=== PATIENT | male | born 1990 | race Caucasian/White ===

== ENCOUNTER 2019-12-21 22:45 | Emergency (ER) | payer SELFPAY ==
[~2019-12-21] VITALS: Ht 175.3 cm; Wt 112.5 kg
[2019-12-21] MEDS ORDERED: SODIUM CHLORIDE 0.9% 1000ML 1,000 ML IV STA (22:47)
[2019-12-21] MEDS ORDERED: ASPIRIN 81 MG CHEW TAB PO ONE (23:00)
[2019-12-21 23:44] LABS: BASOPHILS # (AUTO) 0.1 (0.0-0.1); BASOPHILS % 0.8 % (0.0-1.0); EOSINOPHILS # (AUTO) 0.2 (0.0-0.4); EOSINOPHILS % 2.4 % (0.0-6.0); HEMATOCRIT 45.5 % (38.2-49.6); HEMOGLOBIN 14.9 g/dL (14.0-18.0); LYMPHOCYTES # (AUTO) 1.7 (1.0-3.2); LYMPHOCYTES % 18.8 % (18.0-39.1); MEAN CORPUSCULAR HEMOGLOBIN 27.6 pg (28-32); MEAN CORPUSCULAR HGB CONC 32.7 g/dL (31-35); MEAN CORPUSCULAR VOLUME 84.3 fL (81-99); MONOCYTES # (AUTO) 0.7 (0.2-0.8); MONOCYTES % 8.3 % (4.4-11.3); NEUTROPHILS # (AUTO) 6.1 (2.1-6.9); NEUTROPHILS % 69.5 % (38.7-80.0); PLATELET COUNT 268 x10e3/uL (140-360); RED CELL DISTRIBUTION WIDTH 13.5 % (11.7-14.4)
[2019-12-22 00:02] LABS: ALANINE AMINOTRANSFERASE 17 IU/L (0-55); ALBUMIN/GLOBULIN RATIO 1.3 (0.8-2.0); ALKALINE PHOSPHATASE 103 IU/L (40-150); ANION GAP 12.9 mmol/L (8-16); BLOOD UREA NITROGEN 13 mg/dL (7-26); BUN/CREATININE RATIO 16 (6-25); CALCIUM 9.4 mg/dL (8.4-10.2); CARBON DIOXIDE 24 mmol/L (22-29); CHLORIDE 107 mmol/L (98-107); CREATINE KINASE 60 IU/L (30-200); CREATININE, SERUM 0.82 mg/dL (0.72-1.25); EST GLOMERULAR FILTRATION RATE > 60 ML/MIN (60-); GLUCOSE 94 mg/dL (74-118); POTASSIUM 3.9 mmol/L (3.5-5.1); SODIUM 140 mmol/L (136-145)
[2019-12-22 00:25] LABS: AMPHETAMINES SCREEN,URINE NEGATIVE (NEGATIVE); BENZODIAZEPINES SCREEN,URINE NEGATIVE (NEGATIVE); PHENCYCLIDINE SCREEN,URINE NEGATIVE (NEGATIVE)
--- NOTE | 2019-12-22 01:45 | Diagnostic Imaging Report ---
EXAMINATION: CHEST 2 VIEWS INDICATION: Chest pain, short of breath, anxiety, dizziness COMPARISON: None FINDINGS: TUBES and LINES: None. LUNGS: Normal lung volumes. Lungs are clear. No consolidations. PLEURA: No pleural effusion or pneumothorax. HEART AND MEDIASTINUM: The cardiomediastinal silhouette is unremarkable. BONES AND SOFT TISSUES: Degenerative changes in the spine. No acute osseous lesion. Soft tissues are unremarkable. UPPER ABDOMEN: No free air under the diaphragm. IMPRESSION: No acute thoracic radiographic abnormality. Signed by: William Vasquez DO on 12/22/2019 1:42 AM
== END 2019-12-22 01:11 | disposition home or self-care (01) ==
LOC: ER 22:45
DX: R07.89 Other chest pain (principal); F41.9 Anxiety disorder, unspecified; M54.9 Dorsalgia, unspecified; G89.29 Other chronic pain
CPT/HCPCS: 36415; 71046; 80053; 80307; 82550; 82553; 83880; 84484; 85025; 85379; 93005; 99284; J7030

== ENCOUNTER 2020-01-02 22:27 | Emergency (ER) | payer SELFPAY ==
[~2020-01-02] VITALS: Ht 175.3 cm; Wt 112.5 kg
--- OUTSIDE RECORDS SUMMARY | 2020-01-02 22:30 | XMS REPORT | Clinical Summary ---
Author Author [facility] Address Unknown Phone Unavailable Care Team Providers Care Vacuum Worker Name Role Phone Colt Marin MD PCP Allergies No Known Allergies Medications End Date Status Medication Sig Dispensed Refills Start Date 01/16/2020 Active meloxicam (Mobic) 15 mg Take 1 tablet 20 tablet 0 tablet (15 mg total) 0 by mouth daily as needed for mild pain or moderate pain for up to 30 days. 01/21/2019 Discontinued (Reorder) enalapril (VASOTEC) 10 MG Take 10 mg by 0 tablet mouth 2 (two) times a day. 11/20/2019 Discontinued (Therapy comple derrek) HYDROcodone-acetaminophen Take 1 tablet 0 (NORCO) 10-325 mg per by mouth tablet every 6 (six) hours as needed for moderate pain. 09/23/2019 Discontinued (Reorder) tiZANidine (ZANAFLEX) 4 Take 4 mg by 0 MG tablet mouth every 8 (eight) hours as needed for muscle spasms. 01/26/2019 butalbital-acetaminophen- Take 1 tablet 15 tablet 0 caff (ESGIC) 50-325-40 mg by mouth 9 per tablet every 6 (six) hours as needed for headaches or migraine for up to 5 days. 02/20/2019 enalapril (VASOTEC) 10 MG Take 1 tablet 60 tablet 1 tablet (10 mg total) 9 by mouth 2 (two) times a day for 30 days. 09/30/2019 methocarbamol (ROBAXIN) Take 1 tablet 21 tablet 0 750 MG tablet (750 mg 0 total) by mouth 3 (three) times a day for 7 days. 10/23/2019 pantoprazole (PROTONIX) Take 1 tablet 30 tablet 0 40 MG EC tablet (40 mg total) 0 by mouth daily for 30 days. 09/30/2019 tiZANidine (ZANAFLEX) 4 Take 1 tablet 21 tablet 0 MG tablet (4 mg total) 0 by mouth every 8 (eight) hours as needed for muscle spasms for up to 7 days. 09/28/2019 amoxicillin-pot Take 1 tablet 10 tablet 0 09/23/19 2 clavulanate (AUGMENTIN) by mouth 2 0 875-125 mg per tablet (two) times a day for 5 days. 12/16/2019 naproxen (NAPROSYN) 500 Take 1 tablet 20 tablet 0 MG tablet (500 mg 0 total) by mouth 2 (two) times a day as needed (pain) for up to 10 days. 12/09/2019 butalbital-acetaminophen- Take 1 tablet 12 tablet 0 caff (Esgic) 50-325-40 mg by mouth 0 per tablet every 6 (six) hours as needed for headaches for up to 3 days. 12/27/2019 amoxicillin-pot Take 1 tablet 20 tablet 0 12/17/19 2 clavulanate (AUGMENTIN) by mouth 0 875-125 mg per tablet every 12 (twelve) hours for 10 days. Active Problems Problem Noted Date Chronic intractable headache 09/23/2019 Migraine 01/21/2019 Status migrainosus 01/20/2019 Encounters Care Team Description Date Type Specialty Tevin Madrid MD Nonintractable episodic headache, unspec ified headache type (Primary Dx); Dehydration; Pharyngitis, unspecified etiology 12/17/2019 Emergency Emergency Medicine 12/17/2019 Travel Kenny Pandey MD Chronic nonintractable headache, unspeci fied headache type (Primary Dx) 12/06/2019 Emergency Emergency Medicine 12/06/2019 Travel Sylvain Turner MD Chest pain, unspecified type (Primary Dx ) 12/01/2019 Emergency Emergency Medicine 12/01/2019 Travel Anshul Skelton NP-C Wingkun, Neil-Jeremy Go, MD Umbilical hernia without obstruction and without gangrene (Primary Dx); Hydronephrosis, unspecified hydronephrosis type 11/20/2019 Emergency Emergency Medicine 11/20/2019 Travel Anshul Skelton NP-C Tha Gimenez MD de Ochoa, Christopher Jon, MD Chronic intractable headache, unspecifie d headache type (Primary Dx) 09/22/2019 Emergency Emergency Medicine - 09/23/2019 Darien Cortes DO T[place], Remy, Alvarez Phillip MD Status migrainosus (Primary Dx); Migraine without status migrainosus, not intractable, unspecified migraine type 01/19/2019 [facility] General Surgery - Encounter 01/21/2019 after 01/01/2019 Social History Date Tobacco Use Types Packs/Day Years Used Former Smoker Smokeless Tobacco: Never Used Drinks/Week oz/Week Comments Alcohol Use occasionally Yes Sex Assigned at Date Recorded Not on file Industry Job Start Date Occupation Not on file Not on file Not on file Travel End Travel History Travel Start No recent travel history available. Date Recorded COVID-19 Exposure Response 12/17/2019 4:43 PM CDT In the last month, have you been in contact with No / Unsure someone who was confirmed or suspected to have Coronavirus / COVID-19? Last Filed Vital Signs Reading Time Taken Comments Vital Sign 143/84 12/17/2019 7:57 PM CDT Blood Pressure 82 12/17/2019 7:57 PM CDT Pulse 36.6 C (97.8 F) 12/17/2019 3:00 PM CDT Temperature 16 12/17/2019 7:57 PM CDT Respiratory Rate 100% 12/17/2019 7:57 PM CDT Oxygen Saturation - - Inhaled Oxygen Concentration 114 kg (252 lb) 12/17/2019 3:00 PM CDT Weight 175.3 cm (5' 9") 12/17/2019 3:00 PM CDT Height 37.21 12/17/2019 3:00 PM CDT Body Mass Index Plan of Treatment Health Maintenance Due Date Last Done Comments DIABETIC RETINAL EYE EXAM 1992 DIABETIC FOOT EXAM 02/21/2002 URINE MICROALBUMIN 02/21/2002 INFLUENZA VACCINE 03/13/2020 Procedures Comments Procedure Name Priority Date/Time Associated Diag nosis CT SOFT TISSUE NECK W STAT 12/17/2019 CONTRAST 6:56 PM CDT URINALYSIS SCREEN AND Routine 12/17/2019 MICROSCOPY, WITH REFLEX 6:30 PM CDT TO CULTURE URINE CULTURE Routine 12/17/2019 6:30 PM CDT MAGNESIUM LEVEL STAT 12/17/2019 3:33 PM CDT PHOSPHORUS LEVEL STAT 12/17/2019 3:33 PM CDT ESTIMATED GFR STAT 12/17/2019 3:33 PM CDT CREATINE KINASE, TOTAL STAT 12/17/2019 (CPK) 3:33 PM CDT COMPREHENSIVE METABOLIC STAT 12/17/2019 PANEL 3:33 PM CDT T4, FREE STAT 12/17/2019 3:33 PM CDT THYROID STIMULATING STAT 12/17/2019 HORMONE 3:33 PM CDT B NATRIURETIC PEPTIDE STAT 12/17/2019 3:33 PM CDT TROPONIN STAT 12/17/2019 3:33 PM CDT LACTIC ACID LEVEL, SEPSIS STAT 12/17/2019 - NOW AND REPEAT 2X EVERY 3:33 PM CDT 3 HOURS PARTIAL THROMBOPLASTIN STAT 12/17/2019 TIME (PTT) 3:33 PM CDT PROTHROMBIN TIME WITH INR STAT 12/17/2019 3:33 PM CDT HC COMPLETE BLD COUNT STAT 12/17/2019 W/AUTO DIFF 3:33 PM CDT XR CHEST 1 VW PORTABLE STAT 12/17/2019 3:26 PM CDT ECG ED PRELIMINARY Routine 12/17/2019 INTERPRETATION 3:13 PM CDT ECG 12-LEAD STAT 12/17/2019 2:[address] ANGIOGRAM HEAD W WO STAT 12/06/2019 CONTRAST 7:25 AM CDT CARBOXYHEMOGLOBIN STAT 12/06/2019 7:15 AM CDT ECG ED PRELIMINARY Routine 12/06/2019 INTERPRETATION 6:44 AM CDT ECG 12-LEAD STAT 12/06/2019 6:27 AM CDT ESTIMATED GFR STAT 12/06/2019 6:24 AM CDT HC COMPLETE BLD COUNT STAT 12/06/2019 W/AUTO DIFF 6:24 AM CDT COMPREHENSIVE METABOLIC STAT 12/06/2019 PANEL 6:24 AM CDT LIPASE LEVEL STAT 12/01/2019 8:30 PM CDT ESTIMATED GFR STAT 12/01/2019 8:30 PM CDT B NATRIURETIC PEPTIDE STAT 12/01/2019 8:30 PM CDT TROPONIN STAT 12/01/2019 8:30 PM CDT COMPREHENSIVE METABOLIC STAT 12/01/2019 PANEL 8:30 PM CDT HC COMPLETE BLD COUNT STAT 12/01/2019 W/AUTO DIFF 8:30 PM CDT XR CHEST 2 VW STAT 12/01/2019 8:26 PM CDT ECG ED PRELIMINARY Routine 12/01/2019 INTERPRETATION 8:09 PM CDT ECG 12-LEAD STAT 12/01/2019 8:06 PM CDT ECG 12-LEAD Routine 11/20/2019 9:42 PM CDT ECG 12-LEAD STAT 11/20/2019 9:26 PM CDT TROPONIN Routine 11/20/2019 9:[address] ABDOMEN PELVIS W STAT 11/20/2019 CONTRAST 8:36 PM CDT TROPONIN Timed 11/20/2019 7:27 PM CDT ESTIMATED GFR STAT 11/20/2019 7:27 PM CDT HEPATIC FUNCTION PANEL STAT 11/20/2019 7:27 PM CDT LIPASE LEVEL STAT 11/20/2019 7:27 PM CDT BASIC METABOLIC PANEL STAT 11/20/2019 7:27 PM CDT HC COMPLETE BLD COUNT STAT 11/20/2019 W/AUTO DIFF 7:27 PM CDT URINALYSIS SCREEN AND STAT 11/20/2019 MICROSCOPY, WITH REFLEX 7:24 PM CDT TO CULTURE URINE CULTURE STAT 11/20/2019 7:24 PM CDT ECG ED PRELIMINARY Routine 11/20/2019 INTERPRETATION 7:13 PM CDT ECG ED PRELIMINARY Routine 11/20/2019 INTERPRETATION 7:13 PM CDT ESTIMATED GFR Routine 09/23/2019 3:59 AM CHILD CARE ATTENDANT COMPREHENSIVE METABOLIC Routine 09/23/2019 PANEL 3:59 AM CHILD CARE ATTENDANT HC COMPLETE BLD COUNT Routine 09/23/2019 W/AUTO DIFF 3:59 AM CHILD CARE ATTENDANT URINALYSIS SCREEN AND STAT 09/23/2019 MICROSCOPY, WITH REFLEX 1:45 AM CHILD CARE ATTENDANT TO CULTURE URINE CULTURE STAT 09/23/2019 1:45 AM CHILD CARE ATTENDANT ESTIMATED GFR STAT 09/23/2019 12:48 AM CHILD CARE ATTENDANT CREATINE KINASE, TOTAL STAT 09/23/2019 (CPK) 12:48 AM CHILD CARE ATTENDANT COMPREHENSIVE METABOLIC STAT 09/23/2019 PANEL 12:48 AM CHILD CARE ATTENDANT HC COMPLETE BLD COUNT STAT 09/23/2019 W/AUTO DIFF 12:48 AM [address] CARE [address] CT HEAD WO CONTRAST STAT 09/23/2019 12:26 AM CHILD CARE ATTENDANT THYROID STIMULATING Routine 01/21/2019 HORMONE 5:02 AM CDT POC GLUCOSE Routine 01/21/2019 1:27 AM CDT MRI BRAIN WO CONTRAST Routine 01/20/2019 10:21 PM CDT POC GLUCOSE Routine 01/19/2019 11:26 PM CDT ESTIMATED GFR STAT 01/19/2019 10:55 PM CDT CREATINE KINASE, TOTAL STAT 01/19/2019 (CPK) 10:55 PM CDT BASIC METABOLIC PANEL STAT 01/19/2019 10:55 PM CDT HC COMPLETE BLD COUNT STAT 01/19/2019 W/AUTO DIFF 10:[address] HEAD WO CONTRAST STAT 01/19/2019 10:31 PM CDT ECG ED PRELIMINARY Routine 01/19/2019 INTERPRETATION 10:09 PM CDT ECG 12-LEAD STAT 01/19/2019 10:05 PM CDT after 01/01/2019 Results * CT Soft Tissue Neck W Contrast (12/17/2019 6:56 PM CDT) Specimen Narrative Performed At EXAMINATION: CT SOFT TISSUE NECK W CONTRAST [facility] CLINICAL HISTORY: oral swelling COMPARISON: None. TECHNIQUE: Axial helical CT images throughout the neck soft tissues were performed with IV contrast. Sagittal and coronal reformat derrek images were generated. All CT images were acquired using low-d ose technique with automated exposure control. FINDINGS: There is no neck mass, fluid collection , or lymphadenopathy. Pharynx and larynx are unremarkable. Parotid and submandib ular glands are normal in appearance. The thyroid gland is unremarkable. No significant cervical spondylosis is appreciated. There is a anterior bridging osteophytes at C5-C6 and C6-C7 levels. Visualized lungs and mediastinum are un remarkable. IMPRESSION: Unremarkable neck [facility]. [id number] Procedure Note Interface, Radiology Results Incoming - 12/17/2019 7:06 PM CDT EXAMINATION: CT SOFT TISSUE NECK W CONTRAST CLINICAL HISTORY: oral swelling COMPARISON: None. TECHNIQUE: Axial helical CT images throughout the neck soft tissues were performed with IV contrast. Sagittal and coronal reformatted images were generated. All CT images were acquired using low-dose technique with automated exposure control. FINDINGS: There is no neck mass, fluid collection, or lymphadenopathy. Pharynx and larynx are unremarkable. Parotid and submandibular glands are normal in appearance. The thyroid gland is unremarkable. No significant cervical spondylosis is appreciated. There is a anterior bridging osteophytes at C5-C6 and C6-C7 levels. Visualized lungs and mediastinum are unremarkable. IMPRESSION: Unremarkable neck [facility]. [facility]-[id number] Performing Organization Address [facility] one Number [facility] [address] [place] [address] * Urinalysis screen and microscopy, with reflex to culture (12/17/2019 6:30 PM CDT) Only the most recent of 3 results within the time period is included. Specimen site Clean catch [facility] Color, UA Straw [facility] Appearance, UA Clear [facility] Specific 1.006 1.001 - 1.035 [place] gravity, [facility] pH, UA 6.0 5.0 - 8.5 [facility] Protein, UA Negative Negative [facility] Glucose, UA Negative Negative [facility] Ketones, UA Negative Negative [facility] Bilirubin, UA Negative Negative [facility] Blood, UA Negative Negative [facility] Nitrite, UA Negative Negative [facility] Urobilinogen, Negative <2.[address] [facility] Leukocyte Negative Negative [place] esterase, UA [facility] Epithelial None seen Few /HPF [place] cells, UA [facility] WBC, UA None seen 0 - 1 /HPF [facility] RBC, UA 0-5 0 - 5 /HPF [facility] Bacteria, UA None seen None seen [facility] Yeast, UA None seen [facility] Yeast with None seen [place] pseudohyphae, [facility] Specimen Urine Performing Organization Address City/[facility] one Number [facility] [place] [place] [address] [address] [place], [place] [address] PATHOLOGY AND GENOMIC MEDICINE [facility] [place] [address] [address] Se[address] * Urine culture (12/17/2019 6:30 PM CDT) Only the most recent of 3 results within the time period is included. Urine culture SEE COMMENTComment: [place] Bacteriuria screen negative. [facility] Specimen Urine Performing Organization Address [facility] one Number [facility] [place] [place] [address] [address] [place] [address] 58 PATHOLOGY AND GENOMIC MEDICINE [place] [address] [address] Faisal Sexton [address] * Estimated GFR (12/17/2019 3:33 PM CDT) Only the most recent of 7 results within the time period is included. Pathologist [facility] Estimated GFR >=90 mL/min/1.73 m2 [place] Comment: [facility] Interpretation G1 >=90 Normal or high G2 60-89 Mildly decreased G3a 45-59 Mildly to moderately decreased G3b 30-44 Moderately to severely decreased G4 15-29 Severely decreased G5 <15 Kidney failure The eGFR was calculated using the Chronic Kidney Disease Epidemiology Collaboration (CKD-EPI) equation. Interpretation is based on recommendations of the National Kidney Foundation-Kidney Disease Outcomes Quality Initiative (NKF-KDOQI) published in 2014. Specimen Performing Organization Address [facility] one Number [facility] DEPARTMENT OF [facility] [address] [place] [address] PATHOLOGY AND GENOMIC MEDICINE [facility] * Lactic acid level, SEPSIS - Now and repeat 2x every 3 hours (12/17/2019 3:33 PM CDT) Lactic acid 0.9 0.5 - 2.2 mmol/L [facility] Specimen Blood Performing Organization Address City/[facility] one Number [facility] [place] [address] [address] [address] PATHOLOGY AND GENOMIC MEDICINE [facility] [address] * Troponin (12/17/2019 3:33 PM CDT) Only the most recent of 4 results within the time period is included. Pathologist [facility] Troponin <0.006 0.000 - 0.040 ng/mL [place] Comment: BERT KELLEY In patients suspected of [facility] having a myocardial infarction, along with all other appropriate clinical measures and actions including ECG and other diagnostics as appropriate, measure Ultra TnI at 0 hrs and at 3 hrs. Myocardial infarction VERY LIKELY The 0 hr TnI level is > 0.10 ng/mL Myocardial infarction LIKELY The 0 hr TnI level is > 0.04 ng/mL and 3 hr level is increased or decreased by at least 0.020 ng/mL Myocardial infarction VERY UNLIKELY Both the 0 hr and 3 hr TnI levels <= 0.04 ng/mL(within normal limits) OR 0 hr is > 0.04 ng/mL and 3 hr is increased OR decreased by less than 0.020 ng/mL Specimen Blood Performing Organization Address [facility] Ph one Number [facility] [place]PARTMENT [place] [id number] [place] [address] [place], [place] [address] PATHOLOGY AND GENOMIC MEDICINE [place] BERT KELLEY [id number] [place] [address] [place] [address] [facility] * Partial thromboplastin time, activated (12/17/2019 3:33 PM CDT) Pathologist [facility] PTT 27.1 23.0 - 36.0 sec [place] Comment: BERT KELLEY PTT therapeutic range for [facility] unfractionated heparin is 61.0-112.0 seconds which corresponds to Anti-Xa 0.3-0.7 U/ml. Specimen Blood Performing Organization Address [facility] Ph one Number [facility] [place] [id number] [place] [address] [place] [address] PATHOLOGY AND GENOMIC MEDICINE [facility] [address] * Prothrombin time with INR (12/17/2019 3:33 PM CDT) [facility] Prothrombin 14.6 (H) 11.5 - 14.5 sec [facility] INR 1.1 [place] Comment: [facility] Normalized [facility] Ratio (INR) is a therapeutic monitoring tool for patients who are stable on oral anticoagulant therapy. An INR of 2.0-3.0 is suggested for deep vein thrombosis/pulmonary embolism. Specimen Blood Performing Organization Address City/State/[facility] Ph one Number [facility] [place] [address] [place] [phone] PATHOLOGY AND GENOMIC MEDICINE [facility] [address] [address] Fais[address] Sexton [address] * CBC with platelet and differential (12/17/2019 3:33 PM CDT) Only the most recent of 7 results within the time period is included. [facility] WBC 8.93 4.50 - 11.00 k/uL [facility] RBC 5.23 4.40 - 6.00 m/uL [facility] HGB 14.7 14.0 - 18.0 g/dL [facility] HCT 45.6 41.0 - 51.0 % [facility] MCV 87.2 82.0 - 100.0 fL [facility] MCH 28.1 27.0 - 34.0 pg [facility] MCHC 32.2 31.0 - 37.0 g/dL [facility] RDW - SD 43.1 37.0 - 55.0 fL [facility] MPV 11.7 8.8 - 13.2 fL [facility] Platelet count 254 150 - 400 k/uL [facility] Nucleated RBC 0.00 /100 WBC [facility] Neutrophils 55.3 39.0 - 69.0 % [facility] Lymphocytes 32.0 25.0 - 45.0 % [facility] Monocytes 8.5 0.0 - 10.0 % [facility] Eosinophils 3.0 0.0 - 5.0 % [facility] Basophils 1.0 0.0 - 1.0 % [facility] Specimen Blood Performing Organization Address City/[facility] Ph one Number [facility] [place] [address] [address] [place] [address] PATHOLOGY AND GENOMIC MEDICINE [facility] [address] [address]aisal Sexton [address] * Thyroid stimulating hormone (12/17/2019 3:33 PM CDT) Only the most recent of 2 results within the time period is included. TSH 1.06 0.27 - 4.20 uIU/mL [facility] Specimen Blood Performing Organization Address City/[facility] Ph one Number [facility] [place] [address] [address] [place] [address] PATHOLOGY AND GENOMIC MEDICINE [place] [address] [address]al Sexton [address] * T4, free (12/17/2019 3:33 PM CDT) T4, free 1.52 0.90 - 1.70 ng/dL [facility] Specimen Blood Performing Organization Address City/[facility] Ph one Number [facility] [place] [place] [address] [address] Faisal Sexton [place] [address] PATHOLOGY AND GENOMIC MEDICINE [place] [address] [address] Faisal Sexton [address] * Phosphorus level (12/17/2019 3:33 PM CDT) Phosphorus 4.0 2.4 - 4.5 mg/dL [facility] Specimen Performing Organization Address City/[facility] Ph one Number [facility] [place] [address] [address] [place] [address] 58 PATHOLOGY AND GENOMIC MEDICINE [place] [address] [address] Faisal Sexton [address] * B natriuretic peptide (12/17/2019 3:33 PM CDT) Only the most recent of 2 results within the time period is included. BNP 6 0 - 100 pg/mL [facility] Specimen Blood Performing Organization Address City/[facility] Ph one Number [facility] [place] [address] [address] [place], [place] [address] PATHOLOGY AND GENOMIC MEDICINE [address] Faisal Sexton [address] * Magnesium level (12/17/2019 3:33 PM CDT) Magnesium 2.0 1.6 - 2.6 mg/dL [facility] Specimen Performing Organization Address [facility] one Number [facility] DEPARTMENT [address] [place], [place] [address] PATHOLOGY AND GENOMIC MEDICINE [address] * Creatine kinase, total (CPK) (12/17/2019 3:33 PM CDT) Only the most recent of 3 results within the time period is included. Creatine kinase 74 39 - 308 U/L [facility] Specimen Performing Organization Address [facility] Ph one Number [facility] DEPARTMENT [address] Faisal Sexton [place], [place] [address] PATHOLOGY AND GENOMIC MEDICINE [address] * Comprehensive metabolic panel (12/17/2019 3:33 PM CDT) Only the most recent of 5 results within the time period is included. Sodium 141 135 - 148 mEq/L [facility] Potassium 3.7 3.5 - 5.0 mEq/L [facility] Chloride 102 98 - 112 mEq/L [facility] CO2 27 24 - 31 mEq/L [facility] Anion gap 12@ANIO 7 - 15 mEq/L [facility] BUN 12 6 - 20 mg/dL [facility] Creatinine 1.10 0.70 - 1.20 mg/dL [facility] Glucose 110 (H) 65 - 99 mg/dL [facility] Calcium 9.3 8.3 - 10.2 mg/dL [facility] Protein 7.3 6.3 - 8.3 g/dL [place] Comment: [facility] 4.6-7.0 g/dL 1 week 4.4-7.6 g/dL 7 months-1year 5.1-7.3 g/dL 1-2 years 5.6-7.5 g/dL >3 years 6.0-8.0 g/dL 18-150 6.3-8.3 g/dL Albumin 4.5 3.5 - 5.0 g/dL [facility] A/G ratio 1.6 0.7 - 3.8 [facility] Alkaline 110 40 - 129 U/L [place] phosphatase [facility] AST 15 10 - 50 U/L [facility] ALT 21 5 - 50 U/L [facility] Total bilirubin 0.6 0.0 - 1.2 mg/dL [facility] Specimen Performing Organization Address [facility] Ph [place] [address] [address] [place] [address] PATHOLOGY AND GENOMIC MEDICINE [facility] [address] [place] [address] [facility] * XR Chest 1 Vw Portable (12/17/2019 3:26 PM CDT) Specimen Narrative Performed At EXAMINATION: XR CHEST 1 VW PORTABLE [facility] CLINICAL HISTORY: chest pain COMPARISON: December 01, 2019 chest IMPRESSION: Unremarkable single view chest The lungs are clear. The heart is not enlarged. The bony structures are within normal l imits. [id number] Procedure Note Hm Interface, Radiology Results Incoming - 12/17/2019 3:32 PM CDT EXAMINATION: XR CHEST 1 VW PORTABLE CLINICAL HISTORY: chest pain COMPARISON: December 01, 2019 chest IMPRESSION: Unremarkable single view chest The lungs are clear. The heart is not enlarged. The bony structures are within normal limits. [id number] Performing Organization Address [facility] one Number [facility] [address] [place] [address] * ECG ED Preliminary Interpretation - Not an Order (12/17/2019 3:13 PM CDT) Only the most recent of 6 results within the time period is included. Narrative Performed At Tevin Madrid MD 12/17/2019 11:31 PM ECG ED Preliminary Interpretation - Not an Order Performed by: Tevin Madrid MD Authorized by: Tevin Madrid MD ECG reviewed by ED Physician in the abs ence of a hat block bench hand: yes Interpretation: Interpretation: normal Quality: Tracing quality: Limited by artifac t Rate: ECG rate: 72 ECG rate assessment: normal Rhythm: Rhythm: sinus rhythm Ectopy: Ectopy: none QRS: QRS axis: Normal QRS intervals: Normal Conduction: Conduction: normal ST segments: ST segments: Normal T waves: T waves: inverted Inverted: AVR and III * ECG 12 lead (12/17/2019 2:59 PM CDT) Only the most recent of 6 results within the time period is included. Ventricular 72 [facility] rate Atrial rate 312 [facility] QRSD interval 88 [facility] QT interval 394 [facility] QTC interval 431 [facility] P axis 1 37 [facility] QRS axis 1 34 [facility] T wave axis 21 [facility] EKG impression Sinus rhythm-Inferior infarct [facility] MUS E , age undetermined-Abnormal ECG-- Specimen Narrative Performed At This result has an attachment that is n ot available. Performing Organization Address City/State/Zipcode Ph one Number [facility] MUSE [address] [place] [address] * CTA Head W Wo Contrast (12/06/2019 7:25 AM CDT) Specimen Narrative Performed At EXAMINATION: CT ANGIOGRAM HEAD W WO CONTRAST HM RADI ANT CLINICAL HISTORY: worsening headache. E valuate for artery abnormality COMPARISON: CT brain from September TECHNIQUE: Imaging of the intracrania l circulation was obtained from the skull base to the vertex during the arterial phase of enhancement. Postprocessing was performed with MIP multiplanar and 3D r econstructed images. CT scans are performed using radiation dose reduction techniques. Te chnical factors are evaluated and adjusted to ensure appropriate moderati on of exposure. Automated dose management technology is applied to adjust radiati on exposure while achieving a diagnostic quality image. FINDINGS: There is no evidence of acute large ves christopher occlusion at the level of the [place]. There is no significant sten osis in the major arteries in the head. The left vertebral artery is dominant. The distal vertebral and the basilar arteries and the distal internal carotid arteries do not show evidence of significant focal stenosis. I do not see evidence of aneu rysm. The study was not performed for proper imaging of the brain. There is good enhancement in the dural venous sinuses . The mastoid air cells, middle ear cavit ies and sinuses are well aerated. IMPRESSION: No significant abnormality involving th e arteries in the head and neck. No evidence of dural venous sinus thrombos is. [facility]-[id number] Procedure Note Hm Interface, Radiology Results Incoming - 12/06/2019 7:35 AM CDT EXAMINATION: CT ANGIOGRAM HEAD W WO CONTRAST CLINICAL HISTORY: worsening headache. Evaluate for artery abnormality COMPARISON: CT brain from September 23, 2019 TECHNIQUE: Imaging of the intracranial circulation was obtained from the skull base to the vertex during the arterial phase of enhancement. Postprocessing was performed with MIP multiplanar and 3D reconstructed images. CT scans are performed using radiation dose reduction techniques. Technical factors are evaluated and adjusted to ensure appropriate moderation of exposure. Automated dose management technology is applied to adjust radiation exposure while achieving a diagnostic quality image. FINDINGS: There is no evidence of acute large vessel occlusion at the level of the [place]. There is no significant stenosis in the major arteries in the head. The left vertebral artery is dominant. The distal vertebral and the basilar arteries and the distal internal carotid arteries do not show evidence of significant focal stenosis. I do not see evidence of aneurysm. The study was not performed for proper imaging of the brain. There is good enhancement in the dural venous sinuses. The mastoid air cells, middle ear cavities and sinuses are well aerated. IMPRESSION: No significant abnormality involving the arteries in the head and neck. No evidence of dural venous sinus thrombosis. [facility]-[id number] Performing Organization Address [facility] one Number [facility] [address] [place] [address] * Carboxyhemoglobin (12/06/2019 7:15 AM CDT) Pathologist [facility] Carboxyhemoglob 2.0 0.0 - 2.0 % [place] in Comment: BERT [place]ELLEY Reference Ranges: [facility] Carboxyhemoglobin Non smoker: 0.0 - 2.0% Smoker: 2.1 - 5.0% Heavy smoker: 5.1 - 9% Specimen Blood Performing Organization Address City/[facility] [place] [address] [place] [address] PATHOLOGY AND GENOMIC MEDICINE [place] [address] [place] [address] [facility] * Lipase level (12/01/2019 8:30 PM CDT) Only the most recent of 2 results within the time period is included. Pathologist [facility] Lipase 22 13 - 60 U/L [facility] Specimen Performing Organization Address City/[facility] Ph [place] [address] [address] [place], [place] [address] PATHOLOGY AND GENOMIC MEDICINE [facility] [address] [place] [address] [facility] * XR Chest 2 Vw (12/01/2019 8:26 PM CDT) Specimen Narrative Performed At EXAMINATION: XR CHEST 2 VW HM [facility] CLINICAL HISTORY: Chest pain normal ekg, Shortness of breath TECHNIQUE: XR CHEST 2 VW COMPARISON: Chest radiograph 5 FINDINGS: Heart and mediastinum: Unremarkable Lungs: The lungs are well inflated. T here is no evidence of pneumonia or pulmonary edema. Pleura: There is no pleural effusion. There is no pneumothorax. Bones and Soft Tissues: Unremarkable. IMPRESSION: No acute cardiopulmonary abnormality. [facility]-[id number] Procedure Note Hm Interface, Radiology Results Incoming - 12/01/2019 8:32 PM CDT EXAMINATION: XR CHEST 2 VW CLINICAL HISTORY: Chest pain normal ekg, Shortness of breath TECHNIQUE: XR CHEST 2 VW COMPARISON: Chest radiograph 01/22/2015 FINDINGS: Heart and mediastinum: Unremarkable Lungs: The lungs are well inflated. There is no evidence of pneumonia or pulmonary edema. Pleura: There is no pleural effusion. There is no pneumothorax. Bones and Soft Tissues: Unremarkable. IMPRESSION: No acute cardiopulmonary abnormality. [id number] Performing Organization Address [facility] Ph one Number HM [facility] [address] [place] [address] * CT Abdomen Pelvis W Contrast (11/20/2019 8:36 PM CDT) Specimen Narrative Performed At EXAMINATION: CT ABDOMEN PELVIS W CONTRAST HM RADIA NT CLINICAL HISTORY: generalized ruq p ain x 2 weeks TECHNIQUE: Multiple axial images of the abdomen and pelvis were obtained following intravenous administration of iodinated contrast. CT imaging was performed with iterative reconstruction technique and/or automated exposure control to reduce radiation dose. COMPARISON: 01/22/2015 IMPRESSION: ABDOMEN: 1. Liver: The liver is mildly enlarged measuring 20 cm in craniocaudal span. No focal mass. 2. Gallbladder: The gallbladder is surg ically absent. 3. Spleen: Splenomegaly with the spleen measuring 15 cm. 4. Pancreas: The pancreas is unremarkab le. 5. Adrenal Glands: The adrenal glands a re unremarkable. 6. 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 Right kidney unremarkable. No suspiciou s renal masses. 7. Abdominal Aorta: The abdominal aorta is nonaneurysmal. 8. Nodes: No enlarged retroperitoneal o r mesenteric lymphadenopathy. 9. Bowel: Fat containing umbilical adair ia without inflammation or ascites. No bowel obstruction or bowel inflammation . Normal appendix. Minimal diverticulosis. 10. Ascites: No ascites or fluid collec tions. PELVIS: 1.Pelvis: No mass, fluid collection or significant adenopathy. 2. Bones: Osseous structures intact. No suspicious lesions. 3. Lung Bases: Unremarkable SUMMARY: 1.Moderate fat-containing umbilical her joe. No bowel obstruction. 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 3.Mild hepatosplenomegaly. Status post cholecystectomy. [facility] Procedure Note Hm Interface, Radiology Results Incoming - 11/20/2019 8:48 PM CDT EXAMINATION: CT ABDOMEN PELVIS W CONTRAST CLINICAL HISTORY: generalized ruq pain x 2 weeks TECHNIQUE: Multiple axial images of the abdomen and pelvis were obtained following intravenous administration of iodinated contrast. CT imaging was performed with iterative reconstruction technique and/or automated exposure control to reduce radiation dose. COMPARISON: 01/22/2015 IMPRESSION: ABDOMEN: 1. Liver: The liver is mildly enlarged m easuring 20 cm in craniocaudal span. No focal mass. 2. Gallbladder: The gallbladder is surgi liane absent. 3. Spleen: Splenomegaly with the spleen measuring 15 cm. 4. Pancreas: The pancreas is unremarkabl e. 5. Adrenal Glands: The adrenal glands ar e unremarkable. 6. Kidneys: Duplicated left collecting s ystem with moderate hydroureter and mild hydronephrosis of the upper pole moiety and a distal ureterocele may be present. Right kidney unremarkable. No suspicious renal masses. 7. Abdominal Aorta: The abdominal aorta is nonaneurysmal. 8. Nodes: No enlarged retroperitoneal or mesenteric lymphadenopathy. 9. Bowel: Fat containing umbilical herni a without inflammation or ascites. No bowel obstruction or bowel inflammation. Normal appendix. Minimal diverticulosis. 10. Ascites: No ascites or fluid collect ions. PELVIS: 1.Pelvis: No mass, fluid collection or s ignificant adenopathy. 2. Bones: Osseous structures intact. No suspicious lesions. 3. Lung Bases: Unremarkable SUMMARY: 1.Moderate fat-containing umbilical adair ia. No bowel obstruction. 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 3.Mild hepatosplenomegaly. Status post c holecystectomy. [facility] Performing Organization Address [facility] Ph one Number [facility] [address] [place] [address] * Hepatic function panel (11/20/2019 7:27 PM CDT) Albumin 4.6 3.5 - 5.0 g/dL [facility] Total bilirubin 0.6 0.0 - 1.2 mg/dL [facility] Bilirubin <0.1 0.0 - 0.3 mg/dL [place] direct [facility] Alkaline 130 (H) 40 - 129 U/L [place] phosphatase [facility] Protein 7.7 6.3 - 8.3 g/dL [place] Comment: [facility] 4.6-7.0 g/dL 1 week 4.4-7.6 g/dL 7 months-1year 5.1-7.3 g/dL 1-2 years 5.6-7.5 g/dL >3 years 6.0-8.0 g/dL 18-150 6.3-8.3 g/dL ALT 17 5 - 50 U/L [facility] AST 17 10 - 50 U/L [facility] Specimen Blood Performing Organization Address [facility] Ph one Number [facility] [place] [address] [address] [place], [place] [address] PATHOLOGY AND GENOMIC MEDICINE [facility] [address] [place] [address] [facility] * Basic metabolic panel (11/20/2019 7:27 PM CDT) Only the most recent of 2 results within the time period is included. Sodium 140 135 - 148 mEq/L [facility] Potassium 4.1 3.5 - 5.0 mEq/L [facility] Chloride 103 98 - 112 mEq/L [facility] CO2 24 24 - 31 mEq/L [facility] Anion gap 13@ANIO 7 - 15 mEq/L [facility] BUN 11 6 - 20 mg/dL [facility] Creatinine 0.90 0.70 - 1.20 mg/dL [facility] Glucose 111 (H) 65 - 99 mg/dL [facility] Calcium 10.0 8.3 - 10.2 mg/dL [facility] Specimen Blood Performing Organization Address City/State/Zipcode Ph [place] [address] [address] [place], [place] [address] PATHOLOGY AND GENOMIC MEDICINE [facility] [address] [place] [address] [facility] * CT Head Wo Contrast (09/23/2019 12:26 AM CHILD CARE ATTENDANT) Only the most recent of 2 results within the time period is included. Specimen Narrative Performed At EXAMINATION: CT HEAD WO CONTRAST [facility] CLINICAL HISTORY: worsening headache COMPARISON: CT head 01/19/2019. TECHNIQUE: Noncontrast head CT performe d using radiation dose reduction techniques. Technical factors are annie luated and adjusted to ensure appropriate moderation of exposure. Automated dos e management technology is applied to adjust radiation exposure while achieving a diagnostic quality im age. FINDINGS: No significant interval change appearin g since the prior CT from 2019. No acute intra or extra-axial hemorrhage identif ied. The moffett-white matter differentiation is preserved. The basal ganglia, thalami, midbrain, kathy and cervicomedullary junction are unremarkable. No mass, mass effect, or midline shift is seen. Ventricles and sulci are normal in appearance for nate ent's age. Basal cisterns are patent. Calvarium is intact. The orbital contents are symmetric and normal in appearance. The visualized paranasal sinuses are unremarkable. The mastoid air cells and middle ear cavities are clear. Patient is edentulo us. Scalp soft tissues are unremarkable. IMPRESSION: No acute intracranial abnormality ident ified. [facility]-[id number] Procedure Note Interface, Radiology Results Incoming - 09/23/2019 12:34 AM CHILD CARE ATTENDANT EXAMINATION: CT HEAD WO CONTRAST CLINICAL HISTORY: worsening headache COMPARISON: CT head 01/19/2019. TECHNIQUE: Noncontrast head CT performed using radiation dose reduction techniques. Technical factors are evaluated and adjusted to ensure appropriate moderation of exposure. Automated dose management technology is applied to adjust radiation exposure while achieving a diagnostic quality image. FINDINGS: No significant interval change appearing since the prior CT from 2019. No acute intra or extra-axial hemorrhage identified. The moffett-white matter differentiation is preserved. The basal ganglia, thalami, midbrain, kathy and cervicomedullary junction are unremarkable. No mass, mass effect, or midline shift is seen. Ventricles and sulci are normal in appearance for patient's age. Basal cisterns are patent. Calvarium is intact. The orbital contents are symmetric and normal in appearance. The visualized paranasal sinuses are unremarkable. The mastoid air cells and middle ear cavities are clear. Patient is edentulous. Scalp soft tissues are unremarkable. IMPRESSION: No acute intracranial abnormality identified. [facility]-[id number] Performing Organization Address City/[facility] Ph one Number [facility] [address] [place] [address] * POC glucose (01/21/2019 1:27 AM CDT) Only the most recent of 2 results within the time period is included. POC glucose 158 (H) 65 - 99 mg/dL [place] Comment: [employer] Meter ID: [id number] [facility] Circuit Board Inspector: Gee Stark Specimen Performing Organization Address City/[facility] Ph one Number [facility] [place] [address] [address] [place], [place] [address] PATHOLOGY AND GENOMIC MEDICINE [place] [address] [place] [address] [facility] * MRI Brain Wo Contrast (01/20/2019 10:21 PM CDT) Specimen Narrative Performed At EXAM: MRI BRAIN WO CONTRAST [facility] CLINICAL HISTORY: Headache acute no rmal neuro exam TECHNIQUE: Multiplanar and multisequenc e MRI imaging of the brain was obtained without contrast. COMPARISON: None. FINDINGS: Brain parenchymal volume is within norm al limits for patient age. There is no restricted diffusion to sug gest acute ischemia/infarction. There is no evidence of intracranial he morrhage. The ventricles are normal in size and c onfiguration. There is no focal mass, extra-axial fluid collection, or edema pattern. There is no midline shift or evidence of herniation. Although this examination is not optimi zed for the sella, pituitary is grossly normal in appearance. The major flow voids in the skull base are identified. The bilateral orbits appear unremarkabl e. The paranasal sinuses are clear. The bilateral mastoid air cells are nor anthony pneumatized. The visualized osseous structures appea r unremarkable. The extracranial soft tissues appear un remarkable. IMPRESSION: No evidence of acute ischemia/infarctio n, intracranial hemorrhage, or mass. [facility]-[id number] Procedure Note Hm Interface, Radiology Results Incoming - 01/20/2019 10:35 PM CDT EXAM: MRI BRAIN WO CONTRAST CLINICAL HISTORY: Headache acute normal neuro exam TECHNIQUE: Multiplanar and multisequence MRI imaging of the brain was obtained without contrast. COMPARISON: None. FINDINGS: Brain parenchymal volume is within normal limits for patient age. There is no restricted diffusion to suggest acute ischemia/infarction. There is no evidence of intracranial hemorrhage. The ventricles are normal in size and configuration. There is no focal mass, extra-axial fluid collection, or edema pattern. There is no midline shift or evidence of herniation. Although this examination is not optimized for the sella, pituitary is grossly normal in appearance. The major flow voids in the skull base are identified. The bilateral orbits appear unremarkable. The paranasal sinuses are clear. The bilateral mastoid air cells are normally pneumatized. The visualized osseous structures appear unremarkable. The extracranial soft tissues appear unremarkable. IMPRESSION: No evidence of acute ischemia/infarction, intracranial hemorrhage, or mass. [facility]-[id number] Performing Organization Address City/State/Zipcode Ph one Number [facility] [address] [place] [address] after 01/01/2019 Advance Directives For more information, please contact: [phone] Patient Narcotics Agent Explanation Type Date Recorded Advance Directives, 01/20/2019 1:02 AM Living Will and Medical Power of Region Manager Date Inactivated Comments Code Status Date Activated 09/23/2019 3:08 PM Full Code 09/23/2019 10:06 AM Code Status decision reached by: Patient
--- OUTSIDE RECORDS SUMMARY | 2020-01-02 22:30 | XMS REPORT ---
Author Author [facility] t Organization [facility] t Address [address] [place]. [address] [place] [id number] Phone Unavailable Care Team Providers Care Junior Sales Assistant Name Role Phone MD ASH AKHTAR PCP LAURO RAZA Attphys Unavailable Julius GARDNER, Swati Attphys Dannie GARDNER, H Liv Attphys Yue GARDNER, Yareli Narayan Attphys Costa LOT WORKER-C, Austin Landers Attphys Steve GARDNER, Josh Yepez Attphys [phone] Pernell GARDNER, Kecia Almazan Attphys [phone] Garcia MD, Dave Hartman Attphys [phone] Dung Cortes DO Attphys Teqwimua DO, Paulie Attphys Avinash GARDNER, Alvarez Attphys Payers Payer Name Policy Type Policy Number Effective Date Expiration Date S ource Advance Directives Directive Decision Effective Date Termination Date Comments Sour ce Yes N/A [facility] Problems Condition Name Condition Details Condition Category Status Onset Date Resolution Date Last Treatment Date Treating Clinician Comments Source Chronic intractable headache Chronic intractable headache Disease Active 2019-09-23 00:00:00 Cody Tidwell Migraine Migraine Disease Active 2019-01-21 00:00:00 Cody Tidwell Status migrainosus Status migrainosus Disease Active 2019-01-20 00:00:0 0 Cody Tidwell Problem Condition [facility] Allergies, Adverse Reactions, Alerts Allergy Name Allergy Type Status Severity Reaction(s) Onset Date Inacti ve Date Treating Clinician Comments Source citalopram DA Active [place] 2019-05-26 00:00:00 [facility] citalopram DA Active [place] 2015-02-16 00:00:00 [facility] Social History Social Habit Start Date Stop Date Quantity Comments Source Sex Assigned At Sandrita britt Christian Exposure to SARS-CoV-2 (event) Not sure Cody Tidwell Alcohol intake 2019-12-17 00:00:00 2019-12-17 00:00:00 Current drinker of alcohol (finding) Cody Tidwell Alcohol Comment 2019-01-20 00:00:00 2019-01-20 00:00:00 occasionally Cody Tidwell Smoking Status Start Date Stop Date Source Former smoker 2019-12-17 00:00:00 2019-12-17 00:00:00 Cody Tidwell Medications Ordered Medication Name Filled Medication Name Start Date Stop Da te Current Medication? Ordering Clinician Indication Dosage Frequency Signature (SIG) Comments Components Source meloxicam (Mobic) 15 mg tablet 2019-12-17 00:00:00 5 23:59:00 Yes 15mg Q24H Take 1 tablet (15 mg total) by mouth daily as needed for mild pain or moderate pain for up to 30 days. Cody Tidwell amoxicillin-pot clavulanate (AUGMENTIN) 875-125 mg per table t 2019-12-17 00:00:00 2019-12-27 23:59:00 No 1{tbl} Q12H Take 1 tablet by mouth every 12 (twelve) hours for 10 days. Cody neri naproxen (NAPROSYN) 500 MG tablet 2019-12-06 00:00:00 2019 23:59:00 No 500mg Q.5D Take 1 tablet (5 00 mg total) by mouth 2 (two) times a day as needed (pain) for up to 10 days. Cody perea ymqtptjror-psbwlndjswuev-hdth (Esgic) 50-325-40 mg per table t 2019-12-06 00:00:00 2019-12-09 23:59:00 No 1{tbl} Q6H Take 1 tablet by mouth every 6 (six) hours as needed for headaches for up to 3 days. Cody Tidwell HYDROcodone-acetaminophen (NORCO) 10-325 mg per tablet 2019-11-20 19:48:45 2019-11-20 00:00:00 No 1{tbl} Q6H Take 1 tablet by mouth every 6 (six) hours as needed for moderate pain. Cody adams tiZANidine (ZANAFLEX) 4 MG tablet 2019-09-23 10:08:56 2019 00:00:00 No 4mg Q8H Take 4 mg by mouth every 8 ( eight) hours as needed for muscle spasms. Cody Tidwell pantoprazole (PROTONIX) 40 MG EC tablet 00:00:00 2019-10-23 23:59:00 No 40mg QD Take 1 tablet (40 mg total) by mouth daily for 30 days. Cody Tidwell methocarbamol (ROBAXIN) 750 MG tablet 2019-09-23 00:00 :00 2019-09-30 23:59:00 No 750mg Q.[id number] Take 1 tablet (750 mg total) by mouth 3 (three) times a day for 7 days. Cody Tidwell tiZANidine (ZANAFLEX) 4 MG tablet 2019-09-23 00:00:00 2019 23:59:00 No 4mg Q8H Take 1 tablet (4 mg total) by mouth every 8 (eight) hours as needed for muscle spasms for up to 7 days. Geetha Tidwell amoxicillin-pot clavulanate (AUGMENTIN) 875-125 mg per table t 2019-09-23 00:00:00 2019-09-28 23:59:00 No 1{tbl} Q.5D Take 1 tablet by mouth 2 (two) times a day for 5 days. Cody meyers enalapril (VASOTEC) 10 MG tablet 2019-01-21 16:09:46 2019-01 00:00:00 No 10mg Q.5D Take 10 mg by mouth 2 (two) times a day. Cody Tidwell enalapril (VASOTEC) 10 MG tablet 2019-01-21 00:00:00 2019-02 23:59:00 No 10mg Q.5D Take 1 tablet (10 mg total) by mouth 2 (two) times a day for 30 days. Cody Tidwell dsdpqtakbz-oarofvfrjkfky-axxf (ESGIC) 50-325-40 mg per table t 2019-01-21 00:00:00 2019-01-26 23:59:00 No 1{tbl} Q6H Take 1 tablet by mouth every 6 (six) hours as needed for headaches or migraine for up to 5 days. Cody Tidwell Vital Signs Vital Name Observation Time Observation Value Comments Source Weight 2019-12-21 22:48:00 248 [lb_av] [facility] BMI (Body Mass Index) 2019-12-21 22:48:00 36.6 kg/m2 [facility] Systolic blood pressure 2019-12-17 19:57:00 143 mm[Hg] Cody Tidwell Diastolic blood pressure 2019-12-17 19:57:00 84 mm[Hg] Cody Tidwell Heart rate 2019-12-17 19:57:00 82 /min Cody Tidwell Respiratory rate 2019-12-17 19:57:00 16 /min Geetha Tidwell Oxygen saturation in Arterial blood by Pulse oximetry 12-16 19:57:00 100 /min Cody Tidwell Body temperature 2019-12-17 15:00:00 36.56 Jada Geetha Tidwell Body height 2019-12-17 15:00:00 175.3 cm Cody Tidwell Body weight 2019-12-17 15:00:00 114.306 kg Cody Tidwell BMI 2019-12-17 15:00:00 37.21 kg/m2 Cody Tidwell Procedures Procedure Date / Time Performed Performing Clinician [facility] e X-ray of chest, two views 2019-12-21 00:00:00 [facility] SOFT TISSUE NECK W CONTRAST 2019-12-17 18:56:20 Julius Swati Tidwell URINE CULTURE 2019-12-17 18:30:00 Reva Madridkeesha neri URINALYSIS SCREEN AND MICROSCOPY, WITH REFLEX TO CULTURE 18:30:00 Julius Swati Tidwell HC COMPLETE BLD COUNT W/AUTO DIFF 2019-12-17 15:33:00 Kerrie Madrid PROTHROMBIN TIME WITH INR 2019-12-17 15:33:00 Reva Madridkeesha siddiqialisha Christian PARTIAL THROMBOPLASTIN TIME (PTT) 2019-12-17 15:33:00 Madrid Kerrie Tidwell LACTIC ACID LEVEL, SEPSIS - NOW AND REPEAT 2X EVERY 3 HOURS 2019-12-17 15:33:00 Swati Madrid TROPONIN 2019-12-17 15:33:00 Reva Madridkeesha neri B NATRIURETIC PEPTIDE 2019-12-17 15:33:00 Swati Madrid THYROID STIMULATING HORMONE 2019-12-17 15:33:00 Swati Madrid T4, FREE 2019-12-17 15:33:00 Julius Swati Vieira odeliazar COMPREHENSIVE METABOLIC PANEL 2019-12-17 15:33:00 Swati Madrid CREATINE KINASE, TOTAL (CPK) 2019-12-17 15:33:00 Swati Madrid ESTIMATED GFR 2019-12-17 15:33:00 Reva Madridkeesha Vieira odist PHOSPHORUS LEVEL 2019-12-17 15:33:00 Swati Madrid hodeliazar MAGNESIUM LEVEL 2019-12-17 15:33:00 Julius Swati neri XR CHEST 1 VW PORTABLE 2019-12-17 15:26:00 Swati Madrid on Christian ECG ED PRELIMINARY INTERPRETATION 2019-12-17 15:13:44 Kerrie Madrid ECG 12-LEAD 2019-12-17 14:59:[address] ANGIOGRAM HEAD W WO CONTRAST 2019-12-06 07:25:55 Dannie, Dakota catherine Tidwell CARBOXYHEMOGLOBIN 2019-12-06 07:15:00 Dannie, Liv Elizabeth Marie ethodist ECG ED PRELIMINARY INTERPRETATION 2019-12-06 06:44:36 Dannie, Ruchi farhana Johnson Cody Christian ECG 12-LEAD 2019-12-06 06:27:19 Dannie, Liv Ross Met hodist COMPREHENSIVE METABOLIC PANEL 2019-12-06 06:24:00 Dannie, Liv Elizabeth Cody Christian HC COMPLETE BLD COUNT W/AUTO DIFF 2019-12-06 06:24:00 Dannie, Ruchi farhana Johnson Cody Christian ESTIMATED GFR 2019-12-06 06:24:00 Dannie, Liv Elizabeth Cody Met hodist HC COMPLETE BLD COUNT W/AUTO DIFF 2019-12-01 20:30:00 Sylvain Turner COMPREHENSIVE METABOLIC PANEL 2019-12-01 20:30:00 Gonzalez TROPONIN 2019-12-01 20:30:00 Sylvain Turner ethodist B NATRIURETIC PEPTIDE 2019-12-01 20:30:00 Sylvain Turner Sandrita ston Christian ESTIMATED GFR 2019-12-01 20:30:00 Sylvain Turner ethodist LIPASE LEVEL 2019-12-01 20:30:00 Sylvain Turner ethodist XR CHEST 2 VW 2019-12-01 20:26:50 Sylvain Turner ethodist ECG ED PRELIMINARY INTERPRETATION 2019-12-01 20:09:19 Sylvain Turner ECG 12-LEAD 2019-12-01 20:06:39 Sylvain Turner ethodist ECG 12-LEAD 2019-11-20 21:42:34 Lucho [place] ECG 12-LEAD 2019-11-20 21:26:44 Lucho [place] TROPONIN 2019-11-20 21:24:00 Lucho Churchill H[place] alisha Christian CT ABDOMEN PELVIS W CONTRAST 2019-11-20 20:36:57 Kesha Churchill [place] HC COMPLETE BLD COUNT W/AUTO DIFF 2019-11-20 19:27:00 Benny Churchill [place] BASIC METABOLIC PANEL 2019-11-20 19:27:00 Lucho Churchill damon Cody Tidwell LIPASE LEVEL 2019-11-20 19:27:00 Steve Lucho Iniguez alisha Tidwell HEPATIC FUNCTION PANEL 2019-11-20 19:27:00 Steve Lucho Moreno Cody Tidwell ESTIMATED GFR 2019-11-20 19:27:00 Steve Lucho Iniguez alisha Christian TROPONIN 2019-11-20 19:27:00 Steve Lucho brito Christian URINE CULTURE 2019-11-20 19:24:00 Steve Lucho Iniguez alisha Tidwell URINALYSIS SCREEN AND MICROSCOPY, WITH REFLEX TO CULTURE 19:24:00 Jennifer ChurchillilSaadDarien Moreno Cody Tidwell ECG ED PRELIMINARY INTERPRETATION 2019-11-20 19:13:25 Benny ChurchillKevyn Josh Tidwell HC COMPLETE BLD COUNT W/AUTO DIFF 2019-09-23 03:59:00 Gabriel Skelton COMPREHENSIVE METABOLIC PANEL 2019-09-23 03:59:00 Anshul Skleton ESTIMATED GFR 2019-09-23 03:59:00 Anshul Skelton URINE CULTURE 2019-09-23 01:45:00 Anshul Skelton URINALYSIS SCREEN AND MICROSCOPY, WITH REFLEX TO CULTURE 202 01:45:00 Anshul Skelton HC COMPLETE BLD COUNT W/AUTO DIFF 2019-09-23 00:48:00 Gabriel Skelton COMPREHENSIVE METABOLIC PANEL 2019-09-23 00:48:00 Anshul Skelton CREATINE KINASE, TOTAL (CPK) 2019-09-23 00:48:00 Anshul Skelton ESTIMATED GFR 2019-09-23 00:48:[address] HEAD WO CONTRAST 2019-09-23 00:26:05 Anshul Skelton THYROID STIMULATING HORMONE 2019-01-21 05:02:00 Alvarez Da Silva POC GLUCOSE 2019-01-21 01:27:00 Alvarez Da Silva MRI BRAIN WO CONTRAST 2019-01-20 22:21:19 Ana Maria Duffy POC GLUCOSE 2019-01-19 23:26:00 Darien Cortes HC COMPLETE BLD COUNT W/AUTO DIFF 2019-01-19 22:55:00 Olivia Cortes BASIC METABOLIC PANEL 2019-01-19 22:55:00 Dairen Cortes CREATINE KINASE, TOTAL (CPK) 2019-01-19 22:55:00 Darien Cortes ESTIMATED GFR 2019-01-19 22:55:[address] HEAD WO CONTRAST 2019-01-19 22:31:14 Darien Cortes ECG ED PRELIMINARY INTERPRETATION 2019-01-19 22:09:19 Olivia Cortes ECG 12-LEAD 2019-01-19 22:05:08 Darien Cortes Plan of Care Planned Activity Planned Date Details Comments Source Future Scheduled Test 2020-03-13 00:00:00 INFLUENZA VACCINE [code = INFLUENZA VACCINE] Cody Tidwell Future Scheduled Test 2002-02-21 00:00:00 DIABETIC FOOT EXAM [code = DIABETIC FOOT EXAM] Cody Tidwell Future Scheduled Test 2002-02-21 00:00:00 URINE MICROALBUMIN [code = URINE MICROALBUMIN] Cody Tidwell Future Scheduled Test 1992 00:00:00 DIABETIC RETINAL E YE EXAM [code = DIABETIC RETINAL EYE EXAM] Cody Tidwell Goal Patient referral [code = 4196286 ] [facility] Instructions Chest Pain - Noncardiac [facility] Encounters Start Date/Time End Date/Time Encounter Type Admission Type Attendi [facility] Care Department Encounter ID Source 2019-12-17 00:00:00 2019-12-17 00:00:00 Emergency SWATI [facility] [id number] Cody Tidwell 2019-12-06 00:00:00 2019-12-06 00:00:00 Emergency LIV ROMO [facility] [id number] [facility] 2019-12-01 00:00:00 2019-12-01 00:00:00 Emergency VELAZQUEZ [facility] 064 [id number] [facility] 2019-11-20 00:00:00 2019-11-20 00:00:00 Emergency Benny CHURCHILL [facility] 064 [id number] [facility] 2019-09-22 00:00:00 2019-09-23 00:00:00 Outpatient CHI ROCHELLE NI [facility] 064 [id number] [facility] Results Test Description Test Time Test Comments Results Result Comments Source CHEST 2 VIEWS 2019-12-22 01:41:00 [place] [address] Patient Name: ALLISON WYNN MR #: [id number] : 1990 Age/Sex: 29/M Req #: [id number] Adm Physician: Ordered by: LAURO RAZA DO Report #: [id number] Location: ER Room/Bed: Procedure: [id number] DX/CHEST 2 VIEWS Exam Date: 12/21/19 Exam Time: 2359 REPORT STATUS: Signed EXAMINATION: CHEST 2 VIEWS INDICATION: Chest pain, short of breath, anxiety, dizziness COMPARISON: None FINDINGS: TUBES and LINES: None. LUNGS: Normal lung volumes. Lungs are clear. No consolidations. PLEURA: No pleural effusion or pneumothorax. HEART AND MEDIASTINUM: The cardiomediastinal silhouette is unremarkable. BONES AND SOFT TISSUES: Degenerative changes in the spine. No acute osseous lesion. Soft tissues are unremarkable. UPPER ABDOMEN: No free air under the diaphragm. IMPRESSION: No acute thoracic radiographic abnormality. Signed by: William Pendleton DO on 12/22/2019 1:42 AM Dictated By: WILLIAM PENDLETON DO 1 Transcribed By: SURINDER on 12/22/19141 COPY TO: LAURO RAZA DO Blood leukocytes automated count (number/volume) 2019-12-21 23:20:00 Test Item White Blood Count (test code = 6690-2) 8.83 [facility] count (number/volume)2019-12-21 23:20:00* Test Item Value Reference Range Interpretation Comments Red Blood Count (test code = 789-8) 5.40 [facility] hemoglobin measurement (moles/volume)2019-12-21 23:20:00* Test Item Value Reference Range Interpretation Comments Hemoglobin (test code = 98277-2) 14.9 [facility] HospitalAutomated blood hematocrit (volume fraction)2019-12-21 23:20:00* Test Item Value Reference Range Interpretation Comments Hematocrit (test code = 4544-3) 45.5 [facility] HospitalAutomated erythrocyte mean corpuscular orvxqv1998-15-86 23:20:00* Test Item Value Reference Range Interpretation Comments Mean Corpuscular Volume (test code = 787-2) 84.3 [facility] HospitalAutomated erythrocyte mean corpuscular hemoglobin (mass per erythrocyte)2019-12-21 23:20:00* Test Item Value Reference Range Interpretation Comments Mean Corpuscular Hemoglobin (test code = 785-6) 27.6 [facility] HospitalAutomated erythrocyte mean corpuscular hemoglobin concentration measurement (mass/volume)2019-12-21 23:20:00* Test Item Value Reference Range Interpretation Comments Mean Corpuscular Hemoglobin Concent (test code = 786-4) 32.7 [facility] HospitalRDW YxuNl-Djx5790-03-10 23:20:00* Test Item Value Reference Range Interpretation Comments Red Cell Distribution Width (test code = 85489-4) 13.5 [facility] HospitalAutomated blood platelet count (count/volume)2019-12-21 23:20:00* Test Item Value Reference Range Interpretation Comments Platelet Count (test code = 777-3) 268 [facility] HospitalAutomated blood segmented neutrophil count as percentage of total wuqfgpkxpw4311-72-62 23:20:00* Test Item Value Reference Range Interpretation Comments Neutrophils (%) (Auto) (test code = 01664-9) 69.5 [facility] HospitalAutomated blood lymphocyte count as percentage ot total zorxzkzrjb8152-96-57 23:20:00* Test Item Value Reference Range Interpretation Comments Lymphocytes (%) (Auto) (test code = 736-9) 18.8 [facility] HospitalAutomated blood monocyte count as percentage of total fewqsfehua1703-87-09 23:20:00* Test Item Value Reference Range Interpretation Comments Monocytes (%) (Auto) (test code = 5905-5) 8.3 [facility] HospitalAutformerly [facility] hospitaled blood eosinophil count as percentage of total pbtyfwhclh3734-81-52 23:20:00* Test Item Value Reference Range Interpretation Comments Eosinophils (%) (Auto) (test code = 713-8) 2.4 [facility] HospitalAutomated blood basophil count as percentage of total yqbgutbtfh6958-98-60 23:20:00* Test Item Value Reference Range Interpretation Comments Basophils (%) (Auto) (test code = 706-2) 0.8 [facility] HospitalFluoroscopic procedure less than one hour gefkjqri2063-64-36 23:20:00* Test Item Value Reference Range Interpretation Comments IM GRANULOCYTES % (test code = IM GRANULOCYTES %) 0.2 [facility] HospitalAutomated blood neutrophil count 2019-12-21 23:20:00* Test Item Value Reference Range Interpretation Comments Neutrophils # (Auto) (test code = 751-8) 6.1 [facility] HospitalBlood lymphocytes count (number/volume) 2019-12-21 23:20:00* Test Item Value Reference Range Interpretation Comments Lymphocytes # (Auto) (test code = 77155-3) 1.7 [facility] monocytes automated count (number/volume)2019-12-21 23:20:00* Test Item Value Reference Range Interpretation Comments Monocytes # (Auto) (test code = 742-7) 0.7 [facility] HospitalAutomated blood eosinophil count 2019-12-21 23:20:00* Test Item Value Reference Range Interpretation Comments Eosinophils # (Auto) (test code = 711-2) 0.2 [facility] HospitalAutomated blood basophil count (count/volume)2019-12-21 23:20:00* Test Item Value Reference Range Interpretation Comments Basophils # (Auto) (test code = 704-7) 0.1 [facility] HospitalFluoroscopic procedure less than one hour ylrlhalw2366-62-39 23:20:00* Test Item Value Reference Range Interpretation Comments Absolute Immature Granulocyte (auto (tony t code = Absolute Immature Granulocyte (auto) 0.02 [facility] HospitalFibrin D-dimer DDU measurement in platelet poor plasma (mass/volume)2019-12-21 23:20:00* Test Item Value Reference Range Interpretation Comments D-Dimer Quantitative (PE/DVT) (test code = 73415-7) 0.09 [facility] plasma sodium measurement (moles/volume)2019-12-21 23:20:00* Test Item Value Reference Range Interpretation Comments Sodium Level (test code = 2951-2) 140 [facility]er[facility] or plasma potassium measurement (moles/volume)2019-12-21 23:20:00* Test Item Value Reference Range Interpretation Comments Potassium Level (test code = 2823-3) 3.9 [facility]erum or plasma chloride measurement (moles/volume)2019-12-21 23:20:00* Test Item Value Reference Range Interpretation Comments Chloride Level (test code = 2075-0) 107 [facility]erum or plasma carbon dioxide, total measurement (moles/volume)2019-12-21 23:20:00* Test Item Value Reference Range Interpretation Comments Carbon Dioxide Level (test code = 2028-9) 24 [facility] Hospitalerum or plasma anion ier0783-44-50 23:20:00* Test Item Value Reference Range Interpretation Comments Anion Gap (test code = 57469-0) 12.9 [facility]erum or plasma urea nitrogen measurement (mass/volume)2019-12-21 23:20:00* Test Item Value Reference Range Interpretation Comments Blood Urea Nitrogen (test code = 3094-0) 13 [facility] Hospitalerum or plasma creatinine measurement (mass/volume)2019-12-21 23:20:00* Test Item Value Reference Range Interpretation Comments Creatinine (test code = 2160-0) 0.82 [facility] Hospitalerum or plasma urea nitrogen/creatinine mass imzgs8993-01-40 23:20:00* Test Item Value Reference Range Interpretation Comments BUN/Creatinine Ratio (test code = 3097-3) 16 [facility] HospitalEstimated glomerular filtration rate (GFR) fgmiqvlvbonbl3162-41-79 23:20:00* Test Item Value Reference Range Interpretation Comments Estimat Glomerular Filtration Rate (test code = 626186129) > 60 [facility] HospitalGlucose yixugupcnby0735-94-54 23:20:00* Test Item Value Reference Range Interpretation Comments Glucose Level (test code = FHO2301) 94 [facility] Hospitalerum or plasma calcium measurement (mass/volume)2019-12-21 23:20:00* Test Item Value Reference Range Interpretation Comments Calcium Level (test code = 55761-3) 9.4 [facility] Hospitalerum or plasma total bilirubin measurement (mass/volume)2019-12-21 23:20:00* Test Item Value Reference Range Interpretation Comments Total Bilirubin (test code = 1975-2) 0.4 [facility] HospitalFluoroscopic procedure less than one hour onywupst8641-85-42 23:20:00* Test Item Value Reference Range Interpretation Comments Aspartate Amino Transf (AST/SGOT) (test code = Aspartate Amino Transf (AST/SGOT)) 15 [facility] Hospitalerum or plasma alanine aminotransferase measurement (enzymatic activity/volume)2019-12-21 23:20:00* Test Item Value Reference Range Interpretation Comments Alanine Aminotransferase (ALT/SGPT) (test code = 1742-6) 17 [facility] Hospitalerum or plasma protein measurement (mass/volume)2019-12-21 23:20:00* Test Item Value Reference Range Interpretation Comments Total Protein (test code = 2885-2) 7.0 [facility] Hospitalerum or plasma albumin measurement (mass/volume)2019-12-21 23:20:00* Test Item Value Reference Range Interpretation Comments Albumin (test code = 1751-7) 4.0 [facility] HospitalPlasma globulin measurement (mass/volume) 2019-12-21 23:20:00* Test Item Value Reference Range Interpretation Comments Globulin (test code = 43382-7) 3.0 [facility] Hospitalerum or plasma albumin/globulin mass satka4802-45-28 23:20:00* Test Item Value Reference Range Interpretation Comments Albumin/Globulin Ratio (test code = 1759-0) 1.3 [facility] Hospitalerum or plasma alkaline phosphatase measurement (enzymatic activity/volume)2019-12-21 23:20:00* Test Item Value Reference Range Interpretation Comments Alkaline Phosphatase (test code = 6768-6) 103 [facility] HospitalBNP Jrs-zVpp1037-25-10 23:20:00* Test Item Value Reference Range Interpretation Comments B-Type Natriuretic Peptide (test code = 81791-2) < 10.0 [facility] Hospitalerum or plasma creatine kinase measurement (enzymatic activity/volume)2019-12-21 23:20:00* Test Item Value Reference Range Interpretation Comments Creatine Kinase (test code = 2157-6) 60 [facility] Hospitalerum or plasma creatine kinase MB measurement (mass/volume)2019-12-21 23:20:00* Test Item Value Reference Range Interpretation Comments Creatine Kinase MB (test code = 10580-9) 1.00 [facility] HospitalTroponin I measurement by highly sensitive enzyme bfynvokrevk7779-51-81 23:20:00* Test Item Value Reference Range Interpretation Comments Troponin I (test code = 67369-9) 0.001 [facility] HospitalCT Soft Tissue Neck W Ebzrdrpz2689-58-29 19:03:07Hm Interface, Radiology Results 12/17/2019 7:06 PM CDTEXAMINATION: CT SOFT TISSUE NECK W CONTRASTCLINICAL HISTORY: oral swellingCOMPARISON: None.TECHNIQUE:Axial helical CT images throughout the neck soft tissues were performed with IV contrast. Sagittal and coronal reformatted images were generated.All CT images were acquired using low-dose technique with automated exposure control.FINDINGS: There is no neck mass, fluid collection, or lymphadenopathy. Pharynx and larynx are unremarkable. Parotid and submandibular glands are normal in appearance. The thyroid gland is unremarkable.No significant cervical spondylosis is appreciated. There is a anterior bridging osteophytes at C5-C6 and C6-C7 levels.Visualized lungs and mediastinum are unremarkable.IMPRESSION:Unremarkable neck CT.[facility]-[id number] Regional Medical Center Urine ivvytmz8844-36-79 18:46:09* Test Item Value Reference Range Interpretation Comments Urine culture (test code = 8907711) SEE COMMENT Bacteriuria screen negative. [place] [facility]Urinalysis screen and microscopy, with reflex to culture 2019-12-17 18:46:09* Test Item Value Reference Range Interpretation Comments Specimen site (test code = 9811080) Clean catch Color, UA (test code = 5778-6) Straw Appearance, UA (test code = 5767-9) Clear Specific gravity, UA (test code = 5811-5) 1.006 1.001-1.035 pH, UA (test code = 5803-2) 6.0 5.0-8.5 Protein, UA (test code = 74072-7) Negative Negative Glucose, UA (test code = 37060-0) Negative Negative Ketones, UA (test code = 2514-8) Negative Negative Bilirubin, UA (test code = 5770-3) Negative Negative Blood, UA (test code = 5794-3) Negative Negative Nitrite, UA (test code = 5802-4) Negative Negative Urobilinogen, UA (test code = 75941-8) Negative <2.0 Leukocyte esterase, UA (test code = 5799-2) Negative Negative Epithelial cells, UA (test code = 5787-7) None seen Few /HPF WBC, UA (test code = 5821-4) None seen 0- 1 /HPF RBC, UA (test code = 88442-0) 0-5 0- 5 /HPF Bacteria, UA (test code = 54478-3) None seen None seen Yeast, UA (test code = 30331-1) None seen Yeast with pseudohyphae, UA (test code = 22260-2) None seen Cody TidwellECG 12 [id number] 18:13:41* Test Item Value Reference Range Interpretation Comments Ventricular rate (test code = 253) 72 Atrial rate (test code = 255) 312 QRSD interval (test code = 260) 88 QT interval (test code = 264) 394 QTC interval (test code = 265) 431 P axis 1 (test code = 267) 37 QRS axis 1 (test code = 268) 34 T wave axis (test code = 270) 21 EKG impression (test code = 273) Sinus rhythm-Inferior infarct , age undetermined-Abnormal ECG-- Cody TidwellProthrombin time with [id number] 16:23:25* Test Item Value Reference Range Interpretation Comments Prothrombin time (test code = 5902-2) 14.6 11.5- 14.5 sec H INR (test code = 52005-9) 1.1 Th e International Normalized Ratio (INR) is a therapeutic monitoring tool for patients who are stable on oral anticoagulant therapy. An INR of 2.0-3.0 is suggested for deep vein thrombosis/pulmonary embolism. Lab Interpretation (test code = 18508-9) Abnormal Cody TidwellPartial thromboplastin time, [id number] 16:23:25* Test Item Value Reference Range Interpretation Comments PTT (test code = 75042-0) 27.1 23.0- 36.0 sec PTT therapeutic range for unfractionated heparin is61.0-112.0 seconds which corresponds to Anti-Xa0.3-0.7 U/ml. Cody KhannaistT4, gwmk2317-03-19 16:19:36* Test Item Value Reference Range Interpretation Comments T4, free (test code = 3024-7) 1.52 ng/dL 0.9-1.7 Cody TidwellThyroid stimulating ycbsygg6641-54-23 16:19:36* Test Item Value Reference Range Interpretation Comments TSH (test code = 3016-3) 1.06 0.27- 4.20 uIU/mL Cody KhannaistB natriuretic epfulgy9909-20-70 16:16:57* Test Item Value Reference Range Interpretation Comments BNP (test code = 56150-1) 6 pg/mL 0-100 [facility]av[facility]ol[facility]rh[facility]wbl4587-22-91 16:16:38* Test Item Value Reference Range Interpretation Comments Troponin (test code = 43502-6) <0.006 0-0.04 In patients suspected of having a myocardial infarction, along with all other appropriate clinical measures and actions including ECG and other diagnostics as appropriate, measure Ultra TnI at 0 hrs and at 3 hrs.Myocardial infarction VERY LIKELYThe 0 hr TnI level is > 0.10 ng/mL Lenin cardial infarction LIKELYThe 0 hr TnI level is > 0.04 ng/mL and 3 hr level is increased or decreased by at least 0.020 ng/mL Myocardi al infarction VERY UNLIKELYBoth the 0 hr and 3 hr TnI levels <= 0.04 ng/mL(within normal limits) OR 0 hr is > 0.04 ng/mL and 3 hr is increased OR decreased by less than 0.020 ng/mL [facility] tgtwy5561-64-92 16:07:46* Test Item Value Reference Range Interpretation Comments Sodium (test code = 2951-2) 141 135- 148 mEq/L Potassium (test code = 2823-3) 3.7 3.5- 5.0 mEq/L Chloride (test code = 2075-0) 102 98- 112 mEq/L CO2 (test code = 8-9) 27 24- 31 mEq/L Anion gap (test code = 55120-8) 12@ANIO 7- 15 mEq/L BUN (test code = 3094-0) 12 mg/dL 6-20 Creatinine (test code = 2160-0) 1.10 mg/dL 0.7-1.2 Glucose (test code = 2345-7) 110 mg/dL 65-99 H Calcium (test code = 71840-3) 9.3 mg/dL 8.3-10.2 Protein (test code = 2885-2) 7.3 g/dL 6.3-8.3 - 4.6- 7.0 g/dL1 week 4.4-7.6 g/dL7 months-1year 5.1-7.3 g/dL1-2 years 5.6-7.5 g/dL>3 years 6.0-8.0 g/eQ40-952 6.3-8.3 g/dL Albumin (test code = 1751-7) 4.5 g/dL 3.5-5 A/G ratio (test code = 1759-0) 1.6 0.7-3.8 Alkaline phosphatase (test code = 6768-6) 110 U/L 40-129 AST (test code = 1920-8) 15 U/L 10-50 ALT (test code = 1742-6) 21 U/L 5-50 Total bilirubin (test code = 1975-2) 0.6 mg/dL 0-1.2 Lab Interpretation (test code = 60010-6) Abnormal [place] MethodistMagnesium ivppp2870-51-16 16:07:46* Test Item Value Reference Range Interpretation Comments Magnesium (test code = 21801-7) 2.0 mg/dL 1.6-2.6 [place] MethodistPhosphorus cpdwd3855-08-94 16:07:44* Test Item Value Reference Range Interpretation Comments Phosphorus (test code = 2777-1) 4.0 mg/dL 2.4-4.5 [place] MethodistEstimated [id number] 16:07:43* Test Item Value Reference Range Interpretation Comments Estimated GFR (test code = 5488) >=90 mL/min/1.73 m2 Catergory Units InterpretationG1 >=90 Normal or highG2 60-89 Mildly reevqesheD8y 45-59 Mildly to moderately ljikfrpqjK2o 30-44 Moderately to severely decreasedG4 15-29 Severely decreasedG5 <15 Kidney failureThe eGFR was calculated using the Chronic Kidney Disease Epidemiology Collaboration (CKD-EPI) equation. Interpretation is based on recommendations of the National Kidney Foundation-Kidney Disease Outcomes Quality Initiative (NKF-KDOQI) published in 2014. [place] MethodistCreatine kinase, total (CPK)2019-12-17 16:07:40* Test Item Value Reference Range Interpretation Comments Creatine kinase (test code = 2157-6) 74 U/L 39-308 [place] MethodistLactic acid level, SEPSIS - Now and repeat 2x every 3 hours 2019-12-17 16:05:47* Test Item Value Reference Range Interpretation Comments Lactic acid (test code = 89008-2) 0.9 mmol/L 0.5-2.2 [place] MethodistCBC with platelet and qrylxclhwmxz8183-83-81 15:50:10* Test Item Value Reference Range Interpretation Comments WBC (test code = 62057-4) 8.93 4.50- 11.00 k/uL RBC (test code = 42660-5) 5.23 m/uL 4.4-6 HGB (test code = 718-7) 14.7 g/dL 14-18 HCT (test code = 4544-3) 45.6 % 41-51 MCV (test code = 787-2) 87.2 fL 82-100 MCH (test code = 785-6) 28.1 pg 27-34 MCHC (test code = 786-4) 32.2 g/dL 31-37 RDW - SD (test code = 67629-2) 43.1 fL 37-55 MPV (test code = 98104-1) 11.7 fL 8.8-13.2 Platelet count (test code = 23128-1) 254 150- 400 k/uL Nucleated RBC (test code = 79587-3) 0.00 /100 WBC Neutrophils (test code = 08885-6) 55.3 % 39-69 Lymphocytes (test code = 29608-6) 32.0 % 25-45 Monocytes (test code = 58226-6) 8.5 % 0-10 Eosinophils (test code = 91181-9) 3.0 % 0-5 Basophils (test code = 72711-7) 1.0 % 0-1 [place] MethodistXR Chest 1 Vw Gcvqlcuj0567-79-77 15:29:48Hm Interface, Radiology Results 12/17/2019 3:32 PM CDTEXAMINATION: XR CHEST 1 VW PORTABLECLINICAL HISTORY: chest painCOMPARISON: December 01, 2019 c hestIMPRESSION:Unremarkable single view chestThe lungs are clear.The heart is no t enlarged.The bony structures are within normal limits.[id number] MethodistECG ED Preliminary Interpretation - Not an Srtck6133-72-93 15:13:44Swati Madrid MD 12/17/2019 11:31 [facility] [place] Preliminary Interpretation - Not an OrderPerformed by: Swati Madrid MDAuthorized by: Swati Madrid MD ECG reviewed b y ED Physician in the absence of a animal physiology teacher: yes Interpretation: Interpre tation: normal Quality: Tracing quality: Limited by artifactRate: ECG rate : 72 ECG rate assessment: normal Rhythm: Rhythm: sinus rhythm Ectopy: Ec topy: none QRS: QRS axis: Normal QRS intervals: NormalConduction: Conduc tion: normal ST segments: ST segments: NormalT waves: T waves: inverted Inverted: AVR and IIIHouston MethodistCTA Head W Wo Xsaazuwu1572-12-98 07:32:20 Hm Interface, Radiology Results - 12/06/2019 7:35 AM CDTEXAMINATION: C T ANGIOGRAM HEAD W WO CONTRASTCLINICAL HISTORY: worsening headache. Evaluate for artery abnormalityCOMPARISON: CT brain from September 23, 2019TECHNIQUE: Imagi ng of the intracranial circulation was obtained from the skull base to the verte x during the arterial phase of enhancement. Postprocessing was performed with IA P multiplanar and 3D reconstructed images. CT scans are performed using radiati on dose reduction techniques. Technical factors are evaluated and adjusted to en sure appropriate moderation of exposure. Automated dose management technology is applied to adjust radiation exposure while achieving a diagnostic quality image .FINDINGS:There is no evidence of acute large vessel occlusion at the level of t he yuhaaviatam of [place]. There is no significant stenosis in the major arteries in t he head. The left vertebral artery is dominant. The distal vertebral and the bas ilar arteries and the distal internal carotid arteries do not show evidence of s ignificant focal stenosis. I do not see evidence of aneurysm.The study was not p erformed for proper imaging of the brain. There is good enhancement in the dural venous sinuses.The mastoid air cells, middle ear cavities and sinuses are well aerated.IMPRESSION:No significant abnormality involving the arteries in the head and neck. No evidence of dural venous sinus thrombosis.[facility]-[id number] AtbiygietAyakxugxgztkwnvdm3938-87-52 07:29:48* Test Item Value Reference Range Interpretation Comments Carboxyhemoglobin (test code = 51475-3) 2.0 % 0-2 Reference Ranges: CarboxyhemoglobinNon smoker: 0.0 - 2.0%Smoker: 2.1 - 5.0%Heavy smoker: 5.1 - 9% [place] MethodistLipase cpefc1367-49-42 21:01:03* Test Item Value Reference Range Interpretation Comments Lipase (test code = 3040-3) 22 U/L 13-60 [place] MethodistXR Chest 2 [id number] 20:28:56Hm Interface, Radiology Results 12/01/2019 8:32 PM CDTEXAMINATION: XR CHEST 2 VWCLINICAL HISTORY: Chest pain normal ekg, Shortness of breathTECHNIQUE: XR CHEST 2 VWCOMPARISON: Chest radiograph 01/22/2015FINDINGS:Heart and mediastinum: UnremarkableLungs: The lungs are well inflated. There is no evidence of pneumonia or pulmonary edema.Pleura: There is no pleural effusion. There is no pneumothorax.Bones and Soft Tissues: Unremarkable.IMPRESSION:No acute cardiopulmonary abnormality.[facility]-[id number] MethodistCT Abdomen Pelvis W Contrast 2019-11-20 20:45:41Hm Interface, Radiology Results - 11/20/2019 8:48 PM CDTEXAMINATION: CT ABDOMEN PELVIS W CONTRASTCLINICAL HISTORY: generalized ruq pain x 2 weeksTECHNIQUE: Multiple axial images of the abdomen and pelvis were obtained following intravenous administration of iodinated contrast. CT imaging was performed with iterative reconstruction technique and/or automated exposure control to reduce radiation dose.COMPARISON: 01/22/2015 IMPRESSION:ABDOMEN:1. Liver: The liver is mildly enlarged measuring 20 cm in craniocaudal span. No focal mass.2. Gallbladder: The gallbladder is surgically absent.3. Spleen: Splenomegaly with the spleen measuring 15 cm. 4. Pancreas: The pancreas is unremarkable.5. Adrenal Glands: The adrenal glands are unremarkable.6. 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 Right kidney unremarkable. No suspicious renal masses. 7. Abdominal Aorta: The abdominal aorta is nonaneurysmal.8. Nodes: No enlarged retroperitoneal or mesenteric lymphadenopathy.9. Bowel: Fat containing umbilical hernia without inflammation or ascites. No bowel obstruction or bowel inflammation. Normal appendix. Minimal diverticulosis. 10. Ascites: No ascites or fluid collections.PELVIS:1.Pelvis: No mass, fluid collection or significant a denopathy.2. Bones: Osseous structures intact. No suspicious lesions.3. Lung Bas es: UnremarkableSUMMARY:1.Moderate fat-containing umbilical hernia. 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 Status post cholecystectomy.[facility] Basic metabolic [id number] 19:57:26* Test Item Value Reference Range Interpretation Comments Sodium (test code = 2951-2) 140 135- 148 mEq/L Potassium (test code = 2823-3) 4.1 3.5- 5.0 mEq/L Chloride (test code = 5-0) 103 98- 112 mEq/L CO2 (test code = 2027-9) 24 24- 31 mEq/L Anion gap (test code = 53655-6) 13@ANIO 7- 15 mEq/L BUN (test code = 3094-0) 11 mg/dL 6-20 Creatinine (test code = 2160-0) 0.90 mg/dL 0.7-1.2 Glucose (test code = 2345-7) 111 mg/dL 65-99 H Calcium (test code = 17094-7) 10.0 mg/dL 8.3-10.2 Lab Interpretation (test code = 34606-1) Abnormal [place] MethodistHepatic function [id number] 19:57:25* Test Item Value Reference Range Interpretation Comments Albumin (test code = 1751-7) 4.6 g/dL 3.5-5 Total bilirubin (test code = 1974-) 0.6 mg/dL 0-1.2 Bilirubin direct (test code = 1967-7) <0.1 0-0.3 Alkaline phosphatase (test code = 6768-6) 130 U/L 40-129 H Protein (test code = 2885-2) 7.7 g/dL 6.3-8.3 - 4.6- 7.0 g/dL1 week 4.4-7.6 g/dL7 months-1year 5.1-7.3 g/dL1-2 years 5.6-7.5 g/dL>3 years 6.0-8.0 g/eZ90-798 6.3-8.3 g/dL ALT (test code = 1742-6) 17 U/L 5-50 AST (test code = 1920-8) 17 U/L 10-50 Lab Interpretation (test code = 07562-2) Abnormal [place] MethodistCT Head Wo Aouutegq5665-99-78 00:31:16Hm Interface, Radiology Results 09/23/2019 12:34 AM CSTEXAMINATION: CT HEAD WO CONTRASTCLINICAL HISTORY: worsening headacheCOMPARISON: CT head 01/19.TECHNIQUE: Noncontrast head CT performed using radiation dose reduction te chniques. Technical factors are evaluated and adjusted to ensure appropriate mo deration of exposure. Automated dose management technology is applied to adjust radiation exposure while achieving a diagnostic quality image. FINDINGS:No sig nificant interval change appearing since the prior CT from 2018. No acute intra or extra-axial hemorrhage identified. The moffett-white matter differentiation is p reserved. The basal ganglia, thalami, midbrain, ktahy and cervicomedullary juncti on are unremarkable. No mass, mass effect, or midline shift is seen. Ventricles and sulci are normal in appearance for patient's age. Basal cisterns are patent . Calvarium is intact.The orbital contents are symmetric and normal in appearanc e. The visualized paranasal sinuses are unremarkable. The mastoid air cells and middle ear cavities are clear. Patient is edentulous. Scalp soft tissues are unr emarkable.IMPRESSION:No acute intracranial abnormality identified.[facility]-[id number] [place] MethodistBASIC METABOLIC [id number] 09:18:00* Test Item Value Reference Range Interpretation Comments SODIUM (test code = NA) 142 mmol/L 136-145 N POTASSIUM (test code = K) 4.0 mmol/L 3.5-5.1 N CHLORIDE (test code = CL) 109.0 mmol/L 98-107 H CARBON DIOXIDE (test code = CO2) 29.0 mmol/L 21-32 N ANION GAP (test code = GAP) 8.0 10-20 L GLUCOSE (test code = GLU) 97 mg/dL 74-106 N BLOOD UREA NITROGEN (test code = BUN) 12 mg/dL 7-18 N GLOMERULAR FILTRATION RATE (test code = GFR) > 60 mL/min >=60 Estimated GFR by using Modified MDRD formula.Chronic kidney disease is defined as either kidney damageor GFR <60 mL/min/1.73 m2 for >3 months. CREATININE (test code = CREAT) 0.80 mg/dL 0.7-1.3 N BUN/CREATININE RATIO (test code = BUN/CREA) 14.3 10-20 N CALCIUM (test code = CA) 8.6 mg/dL 8.5-10.1 N LIPID PROFILE (CORONARY RISK)2019-05-27 09:18:00* Test Item Value Reference Range Interpretation Comments TRIGLYCERIDES (test code = TRIG) 135 mg/dL 20-150 N CHOLESTEROL (test code = CHOL) 134 mg/dL 0-200 N CHOLESTEROL/HDL RATIO (test code = CHOLHDL) 5.0 RATIO 0-4.9 H RISK ASSOCIATED WITH CHOL/HDL RATIOS: Risk Male Female1/2 AVERAGE 3.43 3.27AVERAGE 4.97 4.442X AVERAGE 9.55 7.053X AVERAGE 23.39 11.04 REFERENCE VALUE IS RELATED TO RISK LEVELS ASRECOMMENDED BY THE CRYSTAL. HEART, LUNG, AND BLOOD INST. HDL CHOLESTEROL (test code = HDL) 25 mg/dL 40-60 L LIPOPROTEIN LDL (test code = LDL) 79 mg/dL 100-129 L Reference Interval: mg/dL mmol/L Optimal <100 <2.6Near/above optimal 100-129 2.6- 3.3Borderline High 130-159 3.4-4.1High 160-189 4.1-4.9Very High >=190 >=4.9========= This LDL result is a direct measurement.========= BASIC METABOLIC [id number] 08:41:00* Test Item Value Reference Range Interpretation Comments SODIUM (test code = NA) 142 mmol/L 136-145 N POTASSIUM (test code = K) 4.0 mmol/L 3.5-5.1 N CHLORIDE (test code = CL) 109.0 mmol/L 98-107 H CARBON DIOXIDE (test code = CO2) mmol/L 21-32 ANION GAP (test code = GAP) 10-20 GLUCOSE (test code = GLU) mg/dL 74-106 BLOOD UREA NITROGEN (test code = BUN) mg/dL 7-18 GLOMERULAR FILTRATION RATE (test code = GFR) mL/min >=60 CREATININE (test code = CREAT) mg/dL 0.7-1.3 BUN/CREATININE RATIO (test code = BUN/CREA) 10-20 CALCIUM (test code = CA) mg/dL 8.5-10.1 LIPID PROFILE (CORONARY RISK)2019-05-27 08:41:00* Test Item Value Reference Range Interpretation Comments TRIGLYCERIDES (test code = TRIG) mg/dL 20-150 CHOLESTEROL (test code = CHOL) mg/dL 0-200 CHOLESTEROL/HDL RATIO (test code = CHOLHDL) RATIO 0-4.9 HDL CHOLESTEROL (test code = HDL) mg/dL 40-60 LIPOPROTEIN LDL (test code = LDL) mg/dL 100-129 CBC W/AUTO [id number] 08:24:00* Test Item Value Reference Range Interpretation Comments WHITE BLOOD CELL (test code = WBC) 7.6 K/mm3 4.5-12.5 N RED BLOOD CELL (test code = RBC) 4.57 mill/mm3 4.0-5.8 N HEMOGLOBIN (test code = HGB) 12.4 gram/dL 13.0-17.5 L HEMATOCRIT (test code = HCT) 39.2 % 42.0-52.0 L MEAN CELL VOLUME (test code = MCV) 85.8 fL 80-98 N MEAN CELL HGB (test code = MCH) 27.1 picogram 27.0-33.0 N MEAN CELL HGB CONCETRATION (test code = MCHC) 31.6 gram/dL 33.0-36. 0 L RED CELL DISTRIBUTION WIDTH (test code = RDW) 13.3 % 11.6-16. 2 N RED CELL DISTRIBUTION WIDTH SD (test code = RDW-SD) 42.0 fL 37 .0-51.0 N PLATELET COUNT (test code = PLT) 267 K/mm3 150-450 N MEAN PLATELET VOLUME (test code = MPV) 11.0 fL 6.7-11.0 N NEUTROPHIL % (test code = NT%) 65.1 % 39.0-69.0 N IMMATURE GRANULOCYTE % (test code = IG%) 0.5 % 0.0-5.0 N LYMPHOCYTE % (test code = LY%) 22.9 % 25.0-55.0 L MONOCYTE % (test code = MO%) 8.1 % 0.0-10.0 N EOSINOPHIL % (test code = EO%) 2.9 % 0.0-5.0 N BASOPHIL % (test code = BA%) 0.5 % 0.0-1.0 N NUCLEATED RBC % (test code = NRBC%) 0.0 % 0-0 N NEUTROPHIL # (test code = NT#) 4.93 K/mm3 1.8-7.7 N IMMATURE GRANULOCYTE # (test code = IG#) 0.04 x10 3/uL 0-0.03 H LYMPHOCYTE # (test code = LY#) 1.73 K/mm3 1.0-5.0 N MONOCYTE # (test code = MO#) 0.61 K/mm3 0-0.8 N EOSINOPHIL # (test code = EO#) 0.22 K/mm3 0.0-0.5 N BASOPHIL # (test code = BA#) 0.04 K/mm3 0.0-0.2 N NUCLEATED RBC # (test code = NRBC#) 0.00 K/mm3 0.0-0.1 N MANUAL DIFF REQUIRED (test code = MDIFF) NO THYROID STIMULATING [id number] 13:08:00* Test Item Value Reference Range Interpretation Comments THYROID STIMULATING HORMONE (test code = TSH) 1.080 uIU/mL 0.36-3.7 4 N TSH REFERENCE RANGES: EUTHYROID: 0.35 - 4.3 mIU/mL HYPO : > 5.5 mIU/mL HYPER : < 0.35 mIU/mL [id number] 08:39:00* Test Item Value Reference Range Interpretation Comments TROPONIN-I (test code = TROPI) 0.356 ng/mL 0-0.045 COMMENTS TO FEATHER SHAPER: COLLECT 3 HOURS AFTER PREVIOUS [id number] 04:50:00* Test Item Value Reference Range Interpretation Comments TROPONIN-I (test code = TROPI) 0.457 ng/mL 0-0.045 HH COMMENTS TO FEATHER SHAPER: COLLECT 3 HOURS AFTER PREVIOUS SAMPLE- CTA [id number] 03:32:00 Name: ALLISON WYNN [facility] : 1990 Age/S: 29 / M [address] [facility] Unit #: [id number] Loc: Jerilyn LYDIA [address] Phys: Inez Novak MD Acct: [id number] Dis Date: Status: REG ER PHONE #: [phone] Exam Date: 05/26/2019 0253 FAX #: [phone] Reason: tachycardia, elevated troponin EXAMS: CPT CODE: [id number] CTA CHEST 75208 DICTATION LOCATION: H48 HISTORY: Male, 29 years of age with tachycardia, elevated troponin EXAM: CT ANGIOGRAPHY OF THE CHEST COMPARISON: Chest x-ray performed today TECHNIQUE: Helical axial images were obtained from thoracic inlet to upper abdomen with nonionic IV contrast using the CT angiography protocol. Image post processing with MIP and multiplanar reconstruction were performed at the advanced workstation. One or more of the following dose reduction techniques were used: Automated exposure control; adjustment of the mA and/or kV according to the patient size; and/or use of iterative reconstruction technique. FINDINGS: AORTA: No aneurysm or dissection. PULMONARY ARTERIES: Within normal limits size and only moderately enhanced. No obvious central pulmonary artery filling defect. Distal pulmonary artery not well assessed due to hemodilution. HEART: Heart size within normal limits. No significant pericardial effusion. MEDIASTINUM: No pathologically enlarged lymph nodes by CT criteria. Visualized portions of thyroid gland unremarkable. PLEURA: No pleural effusions. LUNGS: No significant emphysema. No focal inf iltrate, consolidation or mass. OTHER: Images through upper abdome n show faintly heterogeneous enhancement of the upper pole cortex of left kidney suspicious for pyelonephritis. There is mild elevation of the left upper pole collecting system which was present on previous CT abdomen and pelvis performed 09/14/2014. Liver is fatty infiltrated. Gallbladder has bee n removed. No acute osseous abnormality. IMPRESSION: 1. No obvious pulmonary embolism. 2. No aortic aneurysm or dissectio n. 3. No acute infiltrate or effusion. 4. Heterogeneous enhancem ent to upper pole of left kidney suspicious for pyelonephritis. Recommen d correlation with urinalysis. PAGE 1 Signed Repo rt (CONTINUED) Name: ALLISON WYNN [facility] : 1990 Age/S: 29 / M [address] [facility] [address] Unit #: [id number] Loc: LYDIA [place] [address] [address] Phys: Inez Novak MD Acct: [id number] Dis Date: Status: REG ER PHONE #: [phone] Exam Date: 05/26/2019252 FAX #: [phone] Reason: tachycardia, elevated troponin EXAMS: CPT CODE: [id number] CTA CHEST 39735 <Continued> at 0332 Reported and signed by: Adina Saravia MD CC: Inez Novak MD; Mathieu Mo Technologist:RT April(R)(CT) CTDI: DLP: Trnscb Date/Time: 05/26/2019 (331) [email or web address] Orig Print D/T: S: 05/26/2019 (033) PAGE 2 Signed Report DRUGS OF ABUSE SCREEN [id number] 03:11:00* Test Item Value Reference Range Interpretation Comments UA PH DIPSTICK (test code = ILANA) 5.0-8.0 URN COCAINE (test code = COCAURN) NEGATIVE <300 ng/mL URN CANNABINOIDS (test code = CANNABURN) NEGATIVE <50 ng/mL URN AMPHETAMINE (test code = AMPHETURN) NEGATIVE <1000 ng/mL URN BARBITURATE (test code = BARBITURN) NEGATIVE <200 ng/mL URN BENZODIAZEPINE (test code = BENZOURN) NEGATIVE <200 ng/mL URN OPIATES (test code = OPIATURN) POSITIVE <300 ng/mL A This test provides only a preliminary test result. A morespecific alternate chemical method must be used in order toobtain a confirmed analytical result. Gas chromatography/mass spectrometry (GC/MS) is thepreferred confirmatory method. Other chemical confirmationmethods are available. Clinical consideration and professional judgment should be applied to any drug of abusetest result, particularly when preliminary positive resultsare used.Unconfirmed screening results must not be used fornon-medical purposes (e.g., employment testing, legaltesting). URN PHENCYCLIDINE (PCP) (test code = PHENCURN) NEGATIVE <25 ng/ mL URN METHADONE (test code = METHAURN) NEGATIVE <300 ng/mL DRUGS OF ABUSE SCREEN [id number] 03:11:00* Test Item Value Reference Range Interpretation Comments UA PH DIPSTICK (test code = ILANA) 6.5 5.0-8.0 URN COCAINE (test code = COCAURN) NEGATIVE <300 ng/mL URN CANNABINOIDS (test code = CANNABURN) NEGATIVE <50 ng/mL URN AMPHETAMINE (test code = AMPHETURN) NEGATIVE <1000 ng/mL URN BARBITURATE (test code = BARBITURN) NEGATIVE <200 ng/mL URN BENZODIAZEPINE (test code = BENZOURN) NEGATIVE <200 ng/mL URN OPIATES (test code = OPIATURN) POSITIVE <300 ng/mL A This test provides only a preliminary test result. A morespecific alternate chemical method must be used in order toobtain a confirmed analytical result. Gas chromatography/mass spectrometry (GC/MS) is thepreferred confirmatory method. Other chemical confirmationmethods are available. Clinical consideration and professional judgment should be applied to any drug of abusetest result, particularly when preliminary positive resultsare used.Unconfirmed screening results must not be used fornon-medical purposes (e.g., employment testing, legaltesting). URN PHENCYCLIDINE (PCP) (test code = PHENCURN) NEGATIVE <25 ng/ mL URN METHADONE (test code = METHAURN) NEGATIVE <300 ng/mL B-TYPE NATRIURETIC [id number] 03:07:00* Test Item Value Reference Range Interpretation Comments B-TYPE NATRIURETIC PEPTIDE (test code = BNP) 43.91 pgram/mL 0-100 N URINALYSIS [id number] 03:05:00* Test Item Value Reference Range Interpretation Comments UA COLOR (test code = COLU) Light-Yellow YELLOW UA APPEARANCE (test code = APPU) CLEAR CLEAR UA GLUCOSE DIPSTICK (test code = DGLUU) NEGATIVE mg/dL NEGATIVE UA BILIRUBIN DIPSTICK (test code = BILU) NEGATIVE mg/dL NEGATIVE UA KETONE DIPSTICK (test code = KETU) NEGATIVE mg/dL NEGATIVE UA SPECIFIC GRAVITY (test code = SGU) 1.010 1.001-1.035 UA BLOOD DIPSTICK (test code = REINA) Negative mg/dL NEGATIVE UA PH DIPSTICK (test code = ILANA) 6.5 5.0-8.0 UA PROTEIN DIPSTICK (test code = PROU) NEGATIVE mg/dL NEGATIVE UA UROBILINIOGEN DIPSTICK (test code = URO) Normal mg/dL NEGATIVE UA NITRITE DIPSTICK (test code = FREDRICK) NEGATIVE NEGATIVE UA LEUKOCYTE ESTERASE W REFLEX (test code = LEUUR) NEGATIVE Kun/uL NEGATIVE UA WBC (test code = WBCU) 0-5 per HPF 0-5 UA RBC (test code = RBCU) NONE SEEN per HPF 0-5 UA EPITHELIAL CELLS (test code = EPIU) None seen per HPF Few UA BACTERIA (test code = BACU) FEW #/HPF NONE A Urine Source? Clean CatchURINALYSIS [id number] 03:04:00* Test Item Value Reference Range Interpretation Comments UA COLOR (test code = COLU) Light-Yellow YELLOW UA APPEARANCE (test code = APPU) CLEAR CLEAR UA GLUCOSE DIPSTICK (test code = DGLUU) NEGATIVE mg/dL NEGATIVE UA BILIRUBIN DIPSTICK (test code = BILU) NEGATIVE mg/dL NEGATIVE UA KETONE DIPSTICK (test code = KETU) NEGATIVE mg/dL NEGATIVE UA SPECIFIC GRAVITY (test code = SGU) 1.010 1.001-1.035 UA BLOOD DIPSTICK (test code = REINA) Negative mg/dL NEGATIVE UA PH DIPSTICK (test code = ILANA) 6.5 5.0-8.0 UA PROTEIN DIPSTICK (test code = PROU) NEGATIVE mg/dL NEGATIVE UA UROBILINIOGEN DIPSTICK (test code = URO) Normal mg/dL NEGATIVE UA NITRITE DIPSTICK (test code = FREDRICK) NEGATIVE NEGATIVE UA LEUKOCYTE ESTERASE W REFLEX (test code = LEUUR) NEGATIVE Kun/uL NEGATIVE UA WBC (test code = WBCU) 0-5 per HPF 0-5 UA RBC (test code = RBCU) per HPF 0-5 UA EPITHELIAL CELLS (test code = EPIU) per HPF Few UA BACTERIA (test code = BACU) FEW #/HPF NONE A Urine Source? Clean [id number] 02:48:00* Test Item Value Reference Range Interpretation Comments CKMB (test code = CKMBT) 2.1 ng/mL 0-6.0 N CBC W/AUTO [id number] 02:39:00* Test Item Value Reference Range Interpretation Comments WHITE BLOOD CELL (test code = WBC) 10.2 K/mm3 4.5-12.5 N RED BLOOD CELL (test code = RBC) 4.75 mill/mm3 4.0-5.8 N HEMOGLOBIN (test code = HGB) 13.0 gram/dL 13.0-17.5 N HEMATOCRIT (test code = HCT) 39.5 % 42.0-52.0 L MEAN CELL VOLUME (test code = MCV) 83.2 fL 80-98 N MEAN CELL HGB (test code = MCH) 27.4 picogram 27.0-33.0 N MEAN CELL HGB CONCETRATION (test code = MCHC) 32.9 gram/dL 33.0-36. 0 L RED CELL DISTRIBUTION WIDTH (test code = RDW) 13.2 % 11.6-16. 2 N RED CELL DISTRIBUTION WIDTH SD (test code = RDW-SD) 40.1 fL 37 .0-51.0 N PLATELET COUNT (test code = PLT) 228 K/mm3 150-450 N MEAN PLATELET VOLUME (test code = MPV) 11.0 fL 6.7-11.0 N NEUTROPHIL % (test code = NT%) 76.8 % 39.0-69.0 H IMMATURE GRANULOCYTE % (test code = IG%) 0.9 % 0.0-5.0 N LYMPHOCYTE % (test code = LY%) 11.0 % 25.0-55.0 L MONOCYTE % (test code = MO%) 9.7 % 0.0-10.0 N EOSINOPHIL % (test code = EO%) 1.1 % 0.0-5.0 N BASOPHIL % (test code = BA%) 0.5 % 0.0-1.0 N NUCLEATED RBC % (test code = NRBC%) 0.0 % 0-0 N NEUTROPHIL # (test code = NT#) 7.86 K/mm3 1.8-7.7 H IMMATURE GRANULOCYTE # (test code = IG#) 0.09 x10 3/uL 0-0.03 H LYMPHOCYTE # (test code = LY#) 1.12 K/mm3 1.0-5.0 N MONOCYTE # (test code = MO#) 0.99 K/mm3 0-0.8 H EOSINOPHIL # (test code = EO#) 0.11 K/mm3 0.0-0.5 N BASOPHIL # (test code = BA#) 0.05 K/mm3 0.0-0.2 N NUCLEATED RBC # (test code = NRBC#) 0.00 K/mm3 0.0-0.1 N MANUAL DIFF REQUIRED (test code = MDIFF) NO - XR CHEST 2 [id number] 02:20:00 FAX: Inez Hernandez [phone] [place]: St: REG FAX: Mathieu Warner MD [phone] Name: LALISON [facility] : 1990 Age/S: 29/M [address] [facility] Unit #: [id number] Loc: [place] [address] Phys: Inez Novak MD Acct: [id number] Dis Date: Status: REG ER PHONE #: [phone] Exam Date: 05/26/2019211 FAX #: [phone] Reason: sob EXAMS: CPT CODE: [id number] XR CHEST 2 V 87604 HISTORY: Shortness of breath Location: C3 COMPARISON:None FINDINGS: 2 views of the chest are provided. Heart size and vascularity are within normal limits. The lungs are clear of focal consolidation. No effusion, pneumothorax, or acute osseous abnormality. IMPRESSION: 1. No focal consolidation. No other acute abnormalities. at 0220 Reported and signed by: Ace Abrams MD CC: Inez Novak MD; Mathieu Mo Technologist: ANSHUL SPANGLER JR Trnscrd Date/Time/By: 05/26/2019 (219) : By: [email or web address] Orig Print D/T: S: 05/26/2019 (0223) PAGE 1 Signed Report BASIC METABOLIC [id number] 02:09:00* Test Item Value Reference Range Interpretation Comments SODIUM (test code = NA) 137 mmol/L 136-145 N POTASSIUM (test code = K) 3.3 mmol/L 3.5-5.1 L CHLORIDE (test code = CL) 103.0 mmol/L 98-107 N CARBON DIOXIDE (test code = CO2) 26.0 mmol/L 21-32 N ANION GAP (test code = GAP) 11.3 10-20 N GLUCOSE (test code = GLU) 131 mg/dL 74-106 H BLOOD UREA NITROGEN (test code = BUN) 13 mg/dL 7-18 N GLOMERULAR FILTRATION RATE (test code = GFR) > 60 mL/min >=60 Estimated GFR by using Modified MDRD formula.Chronic kidney disease is defined as either kidney damageor GFR <60 mL/min/1.73 m2 for >3 months. CREATININE (test code = CREAT) 1.00 mg/dL 0.7-1.3 N BUN/CREATININE RATIO (test code = BUN/CREA) 12.7 10-20 N CALCIUM (test code = CA) 8.3 mg/dL 8.5-10.1 L [id number] 02:09:00* Test Item Value Reference Range Interpretation Comments TROPONIN-I (test code = TROPI) 0.466 ng/mL 0-0.045 HH Results called to [id number] by [email or web address] 05/26/19 0208Critical results verified and read back by Nurse? Y BASIC METABOLIC [id number] 01:58:00* Test Item Value Reference Range Interpretation Comments SODIUM (test code = NA) 137 mmol/L 136-145 N POTASSIUM (test code = K) 3.3 mmol/L 3.5-5.1 L CHLORIDE (test code = CL) 103.0 mmol/L 98-107 N CARBON DIOXIDE (test code = CO2) mmol/L 21-32 ANION GAP (test code = GAP) 10-20 GLUCOSE (test code = GLU) mg/dL 74-106 BLOOD UREA NITROGEN (test code = BUN) mg/dL 7-18 GLOMERULAR FILTRATION RATE (test code = GFR) mL/min >=60 CREATININE (test code = CREAT) mg/dL 0.7-1.3 BUN/CREATININE RATIO (test code = BUN/CREA) 10-20 CALCIUM (test code = CA) 8.3 mg/dL 8.5-10.1 L [id number] 01:58:00* Test Item Value Reference Range Interpretation Comments TROPONIN-I (test code = TROPI) ng/mL 0-0.045 POC [id number] 01:33:44* Test Item Value Reference Range Interpretation Comments POC glucose (test code = 79097-0) 158 mg/dL 65-99 H Meter ID: [id number]: [facility] Lab Interpretation (test code = 29936-6) Abnormal [facility] Brain Wo [id number] 22:32:07Hm Interface, Radiology Results Incoming - 01/20/2019 10:35 PM CDTEXAM: MRI BRAIN WO CONTRASTCLINICAL HISTORY: Headache acute normal neuro examTECHNIQUE: Multiplanar and multisequence MRI imaging of the brain was obtained without contrast.COMPARISON: None.FINDINGS:Brain parenchymal volume is within normal limits for patient age.There is no restricted diffusion to suggest acute ischemia/infarction.There is no evidence of intracranial hemorrhage.The ventricles are normal in size and configuration. There is no focal mass, extra-axial fluid collection, or edema pattern. There is no midline shift or evidence of herniation. Although this examination is not optimized for the sella, pituitary is grossly normal in ap pearance. The major flow voids in the skull base are identified. The bilateral o rbits appear unremarkable. The paranasal sinuses are clear.The bilateral mastoid air cells are normally pneumatized. The visualized osseous structures appear un remarkable. The extracranial soft tissues appear unremarkable.IMPRESSION:No evid ence of acute ischemia/infarction, intracranial hemorrhage, or mass. [id number] Christian
[2020-01-02] MEDS ORDERED: SODIUM CHLORIDE 0.9% 1000ML 1,000 ML IV STA (22:52)
--- NOTE | 2020-01-02 22:52 | Emergency Department Note ---
History of Present Illnes History of Present Illness Chief Complaint: Abdominal Complaints History of Present Illness This is a 29 year old male with epigastric pain which radiates to the back. Patient seen in the ED earlier this month for evaluation of chest pain . Historian: Patient Pencils Washer Required: No Onset (how long ago): week(s) (3) Location: epigastric Radiation: abdomen Severity: moderate Onset quality: gradual Timing of current episode: intermittent Progression: unchanged Chronicity: recurrent Context: recent illness, recent surgery, recent immobilization, recent travel, trauma/injury, new medications, hx of DVT/PE, non-compliance w/ medications, other Relieving factors: none Exacerbating factors: none Associated symptoms: nausea/vomiting Treatments prior to arrival: none Past Medical/Family History Physician Review I have reviewed the patient's past medical and family history. Any updates have been documented here. Past Medical History Recent Fever: No Clinical Suspicion of Infectio: No Past Medical History: None, Anxiety, Chronic Back Pain Past Surgical History: Cholecysctectomy Other Surgery: KIDNEY STENT Social History Smoking Cessation: Never Smoker Alcohol Use: None Any Illegal Drug Use: No Other Last Tetanus: UTD Review of Systems Review of Systems Constitutional: no symptoms EENTM: no symptoms Cardiovascular: no symptoms Respiratory: no symptoms Gastrointestinal: abdominal pain, nausea Genitourinary: no symptoms Musculoskeletal: no symptoms Neurological: no symptoms Psychological: no symptoms Endocrine: no symptoms Hematological/Lymphatic: no symptoms Review of other systems All other systems reviewed and negative. Physical Exam Related Data Allergies: Coded Allergies: No Known Allergies (Unverified , 02/19/11) Physical Exam CONSTITUTIONAL Constitutional: well-developed, well-nourished HENT HENT: normocephalic, atraumatic, oropharynx clear/moist, nose normal HENT L/R: left ext ear normal, right ext ear normal EYES Eyes: PERRL, conjunctivae normal NECK Neck: ROM normal PULMONARY Pulmonary: effort normal, breath sounds normal CARDIOVASCULAR Cardiovascular: bradycardia GASTROINTESTINAL Abdominal: soft, tender (epigastric) GENITOURINARY Genitourinary: exam deferred SKIN Skin: warm, dry MUSCULOSKELETAL Musculoskeletal: ROM normal NEUROLOGICAL Neurological: alert, oriented x 3, no gross motor or sensory deficits PSYCHOLOGICAL Psychological: mood/affect normal, behavior normal, thought content normal, judgement normal, other (anxious) Results Laboratory Laboratory comments Laboratory Tests Test 01/02/20 22:45 01/02/20 22:41 White Blood Count 9.87 x10e3/uL (4.8-10.8) Red Blood Count 5.29 x10e6/uL (4.3-5.7) Hemoglobin 14.7 g/dL (14.0-18.0) Hematocrit 45.4 % (38.2-49.6) Mean Corpuscular Volume 85.8 fL (81-99) Mean Corpuscular Hemoglobin 27.8 pg (28-32) Mean Corpuscular Hemoglobin Concent 32.4 g/dL (31-35) Red Cell Distribution Width 13.3 % (11.7-14.4) Platelet Count 241 x10e3/uL (140-360) Neutrophils (%) (Auto) 62.8 % (38.7-80.0) Lymphocytes (%) (Auto) 28.2 % (18.0-39.1) Monocytes (%) (Auto) 6.0 % (4.4-11.3) Eosinophils (%) (Auto) 2.1 % (0.0-6.0) Basophils (%) (Auto) 0.7 % (0.0-1.0) Neutrophils # (Auto) 6.2 (2.1-6.9) Lymphocytes # (Auto) 2.8 (1.0-3.2) Monocytes # (Auto) 0.6 (0.2-0.8) Eosinophils # (Auto) 0.2 (0.0-0.4) Basophils # (Auto) 0.1 (0.0-0.1) Absolute Immature Granulocyte (auto 0.02 x10e3/uL (0-0.1) Sodium Level 139 mmol/L (136-145) Potassium Level 3.4 mmol/L (3.5-5.1) Chloride Level 102 mmol/L (98-107) Carbon Dioxide Level 26 mmol/L (22-29) Anion Gap 14.4 mmol/L (8-16) Blood Urea Nitrogen 16 mg/dL (7-26) Creatinine 0.83 mg/dL (0.72-1.25) Estimat Glomerular Filtration Rate > 60 ML/MIN (60-) BUN/Creatinine Ratio 19 (6-25) Glucose Level 79 mg/dL (74-118) Calcium Level 9.7 mg/dL (8.4-10.2) Total Bilirubin 1.0 mg/dL (0.2-1.2) Aspartate Amino Transf (AST/SGOT) 16 IU/L (5-34) Alanine Aminotransferase (ALT/SGPT) 18 IU/L (0-55) Alkaline Phosphatase 106 IU/L (40-150) Creatine Kinase 82 IU/L (30-200) Creatine Kinase MB 1.20 ng/mL (0-5.0) Troponin I 0.002 ng/mL (0-0.300) Total Protein 7.1 g/dL (6.5-8.1) Albumin 4.1 g/dL (3.5-5.0) Globulin 3.0 g/dL (2.3-3.5) Albumin/Globulin Ratio 1.4 (0.8-2.0) Lipase 12 U/L (8-78) Urine Color Yellow (YELLOW) Urine Clarity Clear (CLEAR) Urine pH 5.5 (5 - 7) Urine Specific [place] 1.020 (1.010-1.025) Urine Protein Negative (NEGATIVE) Urine Glucose (UA) Negative (NEGATIVE) Urine Ketones Negative (NEGATIVE) Urine Blood Negative (NEGATIVE) Urine Nitrite Negative (NEGATIVE) Urine Bilirubin Negative (NEGATIVE) Urine Urobilinogen 0.2 mg/dL (0.2 - 1) Urine Leukocyte Esterase Negative (NEGATIVE) Urine RBC 0-5 /HPF (0-5) Urine WBC 0-5 /HPF (0-5) Urine Epithelial Cells Few /LPF (NONE) Urine Bacteria Few /HPF (NONE) Urine Mucus Few (RARE) Procedures 12 Lead ECG Interpretation Pencils Washer: Interpreted by ED physician Date: January 03, 2020 Time: 00:12 Prior OFFICE SERVICES CLERK tracings: reviewed Rhythm: sinus bradycardia Rate: normal BPM: 55 QRS axis: normal ST segments normal: Yes T waves normal: Yes Clinical Impression: normal ECG Assessment & Plan Assessment & Plan Final Impression: (1) Abdominal pain Assessment & Plan Labs reviewed with patient. Patient declines CTS of abdomen states that he has had multiple scans and was told to f/u with GI in the past but has yet to make apppointment. patient re-evaluate non-surgical abdomen. Plan to discharge home with Rx Pepcid Depart Disposition: HOME, SELF-CARE Last Vital Signs Date Time Temp Pulse Resp B/P (MAP) Pulse Ox O2 Delivery O2 Flow Rate FiO2 5/22/20 22:50 98.1 85 20 133/90 99 Medications in the ED Sodium Chloride 1,000 ml @ 0 mls/hr Q0M STAT IV Last administered on 01/03/20at 00:12; Admin Dose 999 MLS/HR; Start 01/02/20 at 22:52; Stop 01/02/20 at 22:54; Status DC Iopamidol 74,000 mg STK-MED ONCE INJ ; Start 01/03/20 at 00:22; Stop 01/03/20 at 00:17; Status DC Sodium Chloride 50 ml @ ud STK-MED ONCE .ROUTE ; Start 01/03/20 at 00:23; Stop 01/03/20 at 00:18; Status DC LAURO RAZA DO January 02, 2020 22:52
[2020-01-02 23:11] LABS: BASOPHILS # (AUTO) 0.1 (0.0-0.1); BASOPHILS % 0.7 % (0.0-1.0); EOSINOPHILS # (AUTO) 0.2 (0.0-0.4); EOSINOPHILS % 2.1 % (0.0-6.0); HEMATOCRIT 45.4 % (38.2-49.6); HEMOGLOBIN 14.7 g/dL (14.0-18.0); LYMPHOCYTES # (AUTO) 2.8 (1.0-3.2); LYMPHOCYTES % 28.2 % (18.0-39.1); MEAN CORPUSCULAR HEMOGLOBIN 27.8 pg (28-32); MEAN CORPUSCULAR HGB CONC 32.4 g/dL (31-35); MEAN CORPUSCULAR VOLUME 85.8 fL (81-99); MONOCYTES # (AUTO) 0.6 (0.2-0.8); NEUTROPHILS # (AUTO) 6.2 (2.1-6.9); NEUTROPHILS % 62.8 % (38.7-80.0); PLATELET COUNT 241 x10e3/uL (140-360); RED BLOOD COUNT 5.29 x10e6/uL (4.3-5.7); RED CELL DISTRIBUTION WIDTH 13.3 % (11.7-14.4)
[2020-01-02 23:35] LABS: ALANINE AMINOTRANSFERASE 18 IU/L (0-55); ALBUMIN 4.1 g/dL (3.5-5.0); ALBUMIN/GLOBULIN RATIO 1.4 (0.8-2.0); ALKALINE PHOSPHATASE 106 IU/L (40-150); ANION GAP 14.4 mmol/L (8-16); BLOOD UREA NITROGEN 16 mg/dL (7-26); BUN/CREATININE RATIO 19 (6-25); CALCIUM 9.7 mg/dL (8.4-10.2); CARBON DIOXIDE 26 mmol/L (22-29); CHLORIDE 102 mmol/L (98-107); CREATINE KINASE 82 IU/L (30-200); CREATININE, SERUM 0.83 mg/dL (0.72-1.25); EST GLOMERULAR FILTRATION RATE > 60 ML/MIN (60-); GLUCOSE 79 mg/dL (74-118); LIPASE 12 U/L (8-78); POTASSIUM 3.4 mmol/L (3.5-5.1); SODIUM 139 mmol/L (136-145)
[2020-01-02 23:44] LABS: BILIRUBIN,URINE NEGATIVE (NEGATIVE); CLARITY,URINE CLEAR (CLEAR); COLOR,URINE YELLOW (YELLOW); KETONES,URINE NEGATIVE (NEGATIVE); LEUKOCYTE ESTERASE ,URINE NEGATIVE (NEGATIVE); NITRITE,URINE NEGATIVE (NEGATIVE); PROTEIN,URINE DIPSTICK NEGATIVE (NEGATIVE); URINE UROBILINOGEN 0.2 mg/dL (0.2 - 1)
[2020-01-02 23:48] LABS: BACTERIA,URINE FEW /HPF; EPITHELIAL CELLS,URINE FEW /LPF; MUCUS,URINE FEW (RARE); RBC,URINE 0-5 /HPF (0-5); WBC,URINE (MAN) 0-5 /HPF (0-5)
[2020-01-03] MEDS ORDERED: IOPAMIDOL 370 MG/ML 200 ML INFUS..BTL INJ ONE (00:22)
[2020-01-03] MEDS ORDERED: SODIUM CHLORIDE 0.9% 50ML 50 ML ONE (00:23)
== END 2020-01-03 00:39 | disposition home or self-care (01) ==
LOC: ER 22:27
DX: R10.13 Epigastric pain (principal); R11.2 Nausea with vomiting, unspecified; F41.9 Anxiety disorder, unspecified; M54.9 Dorsalgia, unspecified; G89.29 Other chronic pain
CPT/HCPCS: 36415; 80053; 81001; 82550; 82553; 83690; 84484; 85025; 99283; J7030; Q9967; 93005